=== PATIENT | male | born 1945 | race Hispanic/Latino ===

== ENCOUNTER 2022-12-01 12:34 | Inpatient (IN) | payer OTHER ==
--- OUTSIDE RECORDS SUMMARY | 2022-12-01 12:38 | XMS REPORT | Continuity of Care Document ---
:1945 Author Organization [facility] t Address [address] [place] [address] Care Team Providers Name Role Phone Adwoa Sifuentes MD Primary Care Physician Adwoa Sifuentes MD Attending Clinician Payers Payer Name Policy Type Policy Number Effective Date Expiration Date S ource Problems This patient has no known problems. Allergies, Adverse Reactions, Alerts This patient has no known allergies or adverse reactions. Social History Social Habit Start Date Stop Date Quantity Comments Source Gender identity [facility] Sexual orientation [facility] Sex Assigned At [birth year] [facility] 00:00:00 00:00:00 Smoking Status Start Date Stop Date Source Tobacco smoking consumption unknown [facility] Medications This patient has no known medications. Procedures Procedure Date / Time Performed Performing Clinician [facility] devon US VASCULAR SCREENING 2022-08-06 20:45:00 [facility] HEART SCAN PLUS CT HEART SCAN PLUS W 2022-08-06 19:32:27 [facility] PHYSICIAN ORDER Plan of Care Planned Activity Planned Date Details Comments Source Future Scheduled 2022-10-01 Hepatitis C screening [facility] Test 17:06:34 (procedure) [code = [id number]] Future Scheduled 2022-10-01 SHINGLES VACCINES (1 Met [facility] Test 17:06:34 of 2) [code = SHINGLES VACCINES (1 of 2)] Future Scheduled 2022-10-01 65+ PNEUMOCOCCAL [facility] Test 17:06:34 VACCINE (1 - PCV) [code = 65+ PNEUMOCOCCAL VACCINE (1 - PCV)] Future Scheduled 2022-10-01 COVID-19 VACCINE (4 - [facility] Test 17:06:34 Booster for Moderna series) [code = COVID-19 VACCINE (4 - Booster for Moderna series)] Future Scheduled 2022-10-01 [facility] 17:06:34 [code = INFLUENZA VACCINE] Encounters Start End Encounter Admission Attending Care Care Encounter Source Date/Time Date/Time Type Type Clinicians Facility Department ID 2022-08-06 2022-08-06 [facility], 1.2.840.1 [id number] Method[facility] 13:15:39 23:59:00 [address]counter [facility] [id number] 3.430.2.7 Hospit a .[id number] l .8 2022-08-06 2022-08-06 [facility] 1.2.840.1 [id number] Methodi 13:14:51 13:14:51 Encounter [facility] [id number] 3.430.2.7 Hospit a .[id number] l .8 2022-08-06 2022-08-06 Outpatient [facility] [id number] [place] 00:00:00 00:00:[address] [facility] [address] 2022-08-06 2022-08-06 Outpatient [facility] [id number] [address] [place] [address] 00:00:00 00:00:[address] [facility] [address] 2022-08-06 2022-08-06 Travel 1.2.840.1 [id number] Methodi 00:00:00 00:00:[id number] 3.430.2.7 0.2.7.3.698 Ho spita .[id number] 084.8 l .8 2022-07-23 2022-07-23 Transcribe [facility] 1.2.840.1 [id number] Methodi 00:00:00 00:00:00 Orders [facility] [id number] 3.430.2.7 Hospit a .[id number] l .8 Results This patient has no known results.
--- NOTE | 2022-12-01 13:34 | RAD REPORT ---
EXAM DESCRIPTION: RAD - Pelvis - 12/01/2022 1:15 pm CLINICAL HISTORY: pain sp fall COMPARISON: No comparisons TECHNIQUE: Single AP view of the pelvis. FINDINGS: The visualized pelvic ring is intact. No suspicious osseous lesions. Nnfr-dj-zrmntnyn dege nerative changes of the hip joints. Other pelvic joints are unremarkable. Visualized aspects of the a bdomen and soft tissues are unremarkable. IMPRESSION: No acute osseous abnormality of the bony pelvis. Zlok-ej-hgrmjeyw bilateral hip joint de generative changes.
--- NOTE | 2022-12-01 13:39 | RAD REPORT ---
EXAM DESCRIPTION: RAD - Hip Left 2 View - 12/01/2022 1:15 pm CLINICAL HISTORY: DEFORMITY COMPARISON: Pelvis dated 12/01/2022 TECHNIQUE: Left hip, AP and frogleg views of the left hip. FINDINGS: Buckled fracture at the base of the femoral head. Lidb-hn-olvlrmqz left hip joint degenera tive changes. No dislocation. IMPRESSION: Buckle fracture at the base of the femoral head
--- NOTE | 2022-12-01 13:43 | RAD REPORT ---
EXAM DESCRIPTION: CT - Spine Lumbar Wo Con - 12/01/2022 1:25 pm CLINICAL HISTORY: SMASH INJURY COMPARISON: No comparisons TECHNIQUE: Axial noncontrast CT imaging of the lumbar spine was performed with coronal and sagittal re-formatted images. All CT scans are performed using dose optimization technique as appropriate and may include automated exposure control or mA/KV adjustment according to patient size. FINDINGS: No acute lumbar spine fracture seen. No aggressive marrow pattern or malalignment. Paraspinal tissues are normal in thickness. No paraspinal abscess or hematoma seen. Intervertebral disc disease assessment is inherently limited by CT. Within these limitations, no high -grade canal stenosis suspected. Disc protrusions present circumferentially at L4-5 and L5-S1 contrib david to mild bilateral neural foraminal narrowing on the right at L5-S1 and bilaterally at L4-5. Mild- to-moderate facet degenerative changes most pronounced at L5-S1. 5 millimeter subpleural left lower lobe lung nodule, incompletely imaged. Status post cholecystectomy . Colonic diverticulosis. IMPRESSION: No acute osseus abnormality of the lumbar spine. Degenerative changes as above. It there is concern for impingement upon the neural structures, MRI wo uld provide improved sensitivity.
[2022-12-01 13:58] LABS: Absolute Lymphocytes (CBC) 0.6 K/uL (0.7-4.9); Hematocrit 33.3 % (39.6-49.0); Lymphocytes % 5.6 % (15.3-44.8); MCV 97.9 fL (80-100); MPV 9.1 fL (7.6-11.3)
--- NOTE | 2022-12-01 14:05 | EDPHYS ---
Physician Documentation [facility] Name: Gavin Hale Age: 77 yrs Sex: Male : 1945 Arrival Date: 12/01/2022 Time: 12:34 Bed 13 Private MD: Fabian Sifuentes V ED Physician Wes Christian HPI: 12/01 13:59 This 77 yrs old Male presents to ER via Wheelchair with complaints of Fall bs3 Injury, Hip Pain. 13:59 Patient with history of hypertension hypothyroidism presents with left hip pain status bs3 post fall he feels like his foot got stuck when he was in the kitchen and he fell landing on his left hip prior to arrival he now notes that he feels tingling at the bottom of his foot but no weakness he does have significant pain worse with movement he was able to get himself up and stand but he cannot walk denies prefall lightheadedness dizziness or anything else. Historical: - Allergies: 12:54 No Known Allergies; vg1 - PMHx: 12:54 Hypertension; Hypothyroidism; vg1 - Immunization history: Last tetanus immunization: unknown. - Social history:: Smoking status: Patient denies any tobacco usage or history of. ROS: 14:02 Constitutional: Negative for fever, chills bs3 14:02 All other systems are negative. Exam: 14:02 Constitutional: This is a well developed, well nourished patient who is awake, alert, bs3 and in no acute distress. Head/Face: Normocephalic, atraumatic. Eyes: Pupils equal round and reactive to light, extra-ocular motions intact. Lids and lashes normal. ENT: mmm, no posterior phyarngeal erythema Neck: Trachea midline, no thyromegaly, no neck stiffness Chest/axilla: Normal chest wall appearance and motion. Nontender with no deformity. No lesions are appreciated. Cardiovascular: Regular rate and rhythm with a normal S1 and S2. symmetric pulses in upper extremities Respiratory: Lungs have equal breath sounds bilaterally, clear to auscultation, no respiratory distress Abdomen/GI: Soft, non-tender, no rebound or guarding Skin: Warm, dry with normal turgor. Normal color with no rashes, no lesions, and no evidence of cellulitis. MS/ Extremity: Pulses equal, no cyanosis. Sensation is intact distally to light touch he reports a difference in sensation he has pain with axial loading of his left leg pain with logrolling of the left leg he also has L for tenderness to palpation Neuro: Awake and alert, GCS 15, oriented to person, place, time, and situation. Cranial nerves II-XII grossly intact. Motor strength 5/5 in all extremities. Sensory grossly intact. Psych: Awake, alert, with orientation to person, place and time. Behavior, mood, and affect are within normal limits. Vital Signs: 12:49 BP 156 / 84; Pulse 67; Resp 16; Temp 98.1(TE); Pulse Ox 99% on R/A; Weight 67.13 kg; vg1 Height 5 ft. 10 in. ; Pain 10/10; 14:10 Pain 10/10; nj1 15:07 BP 159 / 94; Pulse 79; Resp 18; Pulse Ox 99% on R/A; kr3 12:49 Body Mass Index 21.24 (67.13 kg, 177.8 cm) vg1 12:49 Pain Scale: Adult vg1 14:10 Pain Scale: Adult nj1 [place] Coma Score: 12:49 Eye Response: spontaneous(4). Motor Response: obeys commands(6). Verbal Response: vg1 oriented(5). Total: 15. Trauma Score (Adult): 12:49 Eye Response: spontaneous(1); Verbal Response: oriented(1); Motor Response: obeys vg1 commands(2); Systolic BP: > 89 mm Hg(4); Respiratory Rate: 10 to 29 per min(4); [place] Score: 15; Trauma Score: 12 MDM: 12:40 Patient medically screened. bs3 14:02 Data reviewed: vital signs, nurses notes. ED course: Patient status post fall with back bs3 pain and leg pain will do x-ray of the leg/hip and CT of the lumbar spine x-ray is consistent with fracture discussed with orthopedics requesting a CT and admission discussed with Dr. Sifuentes who will admit the patient. 12/01 12:50 Order name: CBC with Diff; Complete Time: 14:47 bs3 12/01 12:50 Order name: BMP; Complete Time: 14:47 bs3 12/01 13:54 Order name: Type And Screen; Complete Time: 14:47 bs3 12/01 14:11 Order name: CBC with Automated Diff EDMS 12/01 14:11 Order name: CBC with Automated Diff EDMS 12/01 14:34 Order name: PT-INR bs3 12/01 14:34 Order name: Ptt, Activated bs3 12/01 14:46 Order name: ABO/RH no charge; Complete Time: 14:47 EDMS 12/01 12:50 Order name: Hip Left 2 View XRAY; Complete Time: 13:49 bs3 12/01 12:50 Order name: Pelvis XRAY; Complete Time: 13:49 bs3 12/01 12:50 Order name: CT Lumbar Spine Wo Con; Complete Time: 13:49 bs3 12/01 13:51 Interpretation: Abnormal. bs3 12/01 13:54 Order name: CT Pelvis wo Cont; Complete Time: 14:47 bs3 12/01 14:11 Order name: CONS Physician Consult EDMS 12/01 12:50 Order name: EKG - Nurse/Tech; Complete Time: 13:17 bs3 Administered Medications: 14:10 Drug: morphine IVP or IV 2 mg Route: IVP; Infused Over: 4 mins; Site: left antecubital; nj1 15:08 Follow up: Response: No adverse reaction; RASS: Alert and Calm (0) kr3 Disposition Summary: 12/01/22 14:04 Hospitalization Ordered Hospitalization Status: Inpatient Admission bs3 Provider: Fabian Sifuentes bs3 Location: Telemetry/MedSurg (Inpatient) bs3 Condition: Stable bs3 Problem: new bs3 Symptoms: have improved bs3 Bed/Room Type: Standard bs3 Room Assignment: 229(12/01/22 14:26) eb Diagnosis - Stress fracture, hip, unspecified bs3 Forms: - Medication Reconciliation Form bs3 - SBAR form bs3 Signatures: Dispatcher [employer] EDMS Yanira Hodges Victoria RN RN vg1 Wes Christian MD MD bs3 Lacy Roblero RN RN nj1 Lita García RN kr3 Corrections: (The following items were deleted from the chart) 14:26 14:04 bs3 eb
--- NOTE | 2022-12-01 14:05 | ER ---
Nurse's Notes [facility] Name: Gavin Hale Age: 77 yrs Sex: Male : 1945 Arrival Date: 12/01/2022 Time: 12:34 Bed 13 Private MD: Fabian Sifuentes V Diagnosis: Stress fracture, hip, unspecified Presentation: 12/01 12:49 Chief complaint: Patient states: "I was walking just fine this morning and tripped in vg1 kitchen" Denies LOC and denies hitting head. States Left hip and left knee pain, lower back pain upon palpation. Care prior to arrival: None. Mechanism of Injury: Fall from standing position. Trauma event details: Injury occurred in the [facility]. 12:49 Acuity: EULOGIO 3 vg1 12:49 Method Of Arrival: Wheelchair vg1 12:53 Coronavirus screen: Vaccine status: Patient reports receiving the 2nd dose of the covid vg1 vaccine. Client denies travel out of the [place] in the last 14 days. Ebola Screen: Patient negative for fever greater than or equal to 101.5 degrees Fahrenheit, and additional compatible Ebola Virus Disease symptoms Patient denies exposure to infectious person. Patient denies travel to an Ebola-affected area in the 21 days before illness onset. Initial Sepsis Screen: Does the patient meet any 2 criteria? No. Patient's initial sepsis screen is negative. Does the patient have a suspected source of infection? No. Patient's initial sepsis screen is negative. Risk Assessment: Do you want to hurt yourself or someone else? Patient reports no desire to harm self or others. Onset of symptoms was December 01, 2022. Historical: - Allergies: 12:54 No Known Allergies; vg1 - PMHx: 12:54 Hypertension; Hypothyroidism; vg1 - Immunization history: Last tetanus immunization: unknown. - Social history:: Smoking status: Patient denies any tobacco usage or history of. Screenin:49 Abuse screen: Denies threats or abuse. Denies injuries from another. Nutritional vg1 screening: No deficits noted. Tuberculosis screening: No symptoms or risk factors identified. 15:02 [facility] ED Fall Risk Assessment (Adult) History of falling in the last 3 months, kr3 including since admission Yes- single mechanical fall (1 pt) Confusion or Disorientation No (0 pts) Intoxicated or Sedated No (0 pts) Impaired Gait No (0 pts) Mobility Assist Device Used No (0 pt) Altered Elimination No (0 pt) Score/Fall Risk Level 0 - 2 = Low Risk Oriented to surroundings, Maintained a safe environment, Educated pt \\T\\ family on fall prevention, incl call for assistance when getting out of bed, Assessed \\T\\ reinforced patient's understanding of fall precautions, Hourly rounding (assess needs \\T\\ fall precautionary measures) done. Primary Survey: 12:49 NO uncontrolled hemorrhage observed. A: The client is awake and alert. The airway is vg1 patent. Breathing/Chest: Spontaneous respiratory effort, equal unlabored respirations, breath sounds clear bilaterally, regular pattern, symmetrical chest rise and fall. Circulation: No external hemorrhage present. Regular and strong central pulse, skin warm/dry/normal color. Disability Client is alert. Exposure/Environment: All clothing and personal items were removed. Forensic evidence collection is not deemed to be indicated at this time. Items placed in patient belonging bag. There is no evidence of uncontrolled external bleeding. c/o pain in Left hip and left knee. 15:00 Reassessment Breathing: Spontaneous respiratory effort, equal unlabored respirations, kr3 breath sounds clear bilaterally, regular pattern with symmetrical chest rise and fall. Circulation: No external hemorrhage noted. Regular and strong central pulse, skin warm/dry/normal color. Disability: Alert. Secondary Survey: 12:49 HEENT: No deficits noted. Gastrointestinal: No deficits noted. : No deficits noted. vg1 Musculoskeletal: Reports pain in left knee and left hip. Assessment: 12:49 General: Appears in no apparent distress. uncomfortable, Behavior is calm, cooperative. vg1 Pain: Complains of pain in Left hip and left knee Pain currently is 10 out of 10 on a pain scale. Musculoskeletal: Range of motion: limited in left hip and left knee. 13:00 Reassessment: XRAY at bedside. vg1 Vital Signs: 12:49 BP 156 / 84; Pulse 67; Resp 16; Temp 98.1(TE); Pulse Ox 99% on R/A; Weight 67.13 kg; vg1 Height 5 ft. 10 in. ; Pain 10/10; 14:10 Pain 10/10; nj1 15:07 BP 159 / 94; Pulse 79; Resp 18; Pulse Ox 99% on R/A; kr3 12:49 Body Mass Index 21.24 (67.13 kg, 177.8 cm) vg1 12:49 Pain Scale: Adult vg1 14:10 Pain Scale: Adult nj1 [place] Coma Score: 12:49 Eye Response: spontaneous(4). Motor Response: obeys commands(6). Verbal Response: vg1 oriented(5). Total: 15. Trauma Score (Adult): 12:49 Eye Response: spontaneous(1); Verbal Response: oriented(1); Motor Response: obeys vg1 commands(2); Systolic BP: > 89 mm Hg(4); Respiratory Rate: 10 to 29 per min(4); Sandra Score: 15; Trauma Score: 12 ED Course: 12:36 Patient arrived in ED. rg4 12:36 Fabian Sifuentes MD is Private Physician. rg4 12:40 Wes Christian MD is Attending Physician. bs3 12:49 Patient maintains SpO2 saturation greater than 95% on room air. vg1 12:51 Triage completed. vg1 12:53 Arm band placed on. vg1 13:00 Bed in low position. Call light in reach. Side rails up X 1. kr3 13:01 Lita García, [place] is Primary Nurse. kr3 13:17 Hip Left 2 View XRAY In Process Unspecified. EDMS 13:17 Pelvis XRAY In Process Unspecified. EDMS 13:27 CT Lumbar Spine Wo Con In Process Unspecified. EDMS 13:53 Inserted saline lock: 20 gauge in left antecubital area, using aseptic technique. Blood ah1 collected. 13:53 BMP Sent. ah1 13:53 CBC with Diff Sent. ah1 14:03 Fabian Sifuentes MD is Hospitalizing Provider. bs3 14:20 CT Pelvis wo Cont In Process Unspecified. EDMS 15:00 Patient admitted, IV remains in place. kr3 15:00 No provider procedures requiring assistance completed. kr3 15:03 Thermoregulation: warm blanket given to patient. kr3 15:08 Ptt, Activated Sent. kr3 15:09 PT-INR Sent. kr3 Administered Medications: 14:10 Drug: morphine IVP or IV 2 mg Route: IVP; Infused Over: 4 mins; Site: left antecubital; nj1 15:08 Follow up: Response: No adverse reaction; RASS: Alert and Calm (0) kr3 Medication: 15:03 VIS not applicable for this client. kr3 Intake: 15:02 PO: 0ml; Total: 0ml. kr3 Outcome: 14:04 Decision to Hospitalize by Provider. bs3 15:00 Admitted to Med/surg accompanied by tech, via stretcher, room 229, Report called to kr3 Miri Palacios Rn 15:01 Condition: stable kr3 15:01 Instructed on the need for admit. 15:02 Patient's length of stay was not longer than 2 hours. patient hospitalized Patient's kr3 length of stay extended due to 15:09 Patient left the ED. kr3 Signatures: Dispatcher [employer] EDMelany Velásquez rg4 Kimberli Albert, RN RN vg1 Lita García RN RN kr3 Wes Christian MD MD bs3 Lacy Roblero RN RN nj1 Óscar Castellon [facility]
[2022-12-01] MEDS ORDERED: MORPHINE 2 MG/ML SYR ONE (14:16)
--- NOTE | 2022-12-01 14:44 | RAD REPORT ---
EXAM DESCRIPTION: CT - Pelvis Wo Cont - 12/01/2022 2:19 pm CLINICAL HISTORY: eval left hip fracture COMPARISON: No comparisons TECHNIQUE: Thin cut axial CT imaging of the pelvis was performed without IV contrast. Multiplanar re formats were generated and reviewed. All CT scans are performed using dose optimization technique as appropriate and may include automated exposure control or mA/KV adjustment according to patient size. FINDINGS: Impacted and slightly volar apex angulated left basicervical femoral neck fracture. The visualized pelvic ring is otherwise intact. The right femoral head/neck are intact. No other suspicious osseous lesions. Mild colonic diverticulosis. Small right inguinal hernia containing fat. IMPRESSION: Inspected and angulated left femoral basicervical fracture as above.
[2022-12-01] MEDS ORDERED: NA CHLORIDE 0.9% 1,000 ML IV SCH (15:00)
[2022-12-01 15:26] VITALS: BMI 21.4
[2022-12-01 16:40] LABS: Protime INR 0.98
[2022-12-01] MEDS ORDERED: DIPHENHYDRAMINE 25 MG TAB/CAP PO PRN (21:10)
[2022-12-01] MEDS ORDERED: cloNIDine HCL 0.1 MG TAB PO PRN (21:11)
[2022-12-01] MEDS: NA CHLORIDE 0.9% 1,000 ML IV SCH (22:00)
[2022-12-01] MEDS: MORPHINE 2 MG/ML SYR IV PRN (22:58)
[2022-12-02] MEDS: MORPHINE 2 MG/ML SYR IV PRN ×2 (03:13→09:06)
[2022-12-02 03:42] LABS: Absolute Lymphocytes (CBC) 0.7 K/uL (0.7-4.9); Hematocrit 29.3 % (39.6-49.0); Lymphocytes % 13.9 % (15.3-44.8); MCV 96.5 fL (80-100); MPV 9.3 fL (7.6-11.3); RBC Red Blood Cell Count 3.04 M/uL (4.33-5.43)
[2022-12-02] MEDS: NA CHLORIDE 0.9% 1,000 ML IV SCH ×2 (05:29→18:00)
[2022-12-02] MEDS: ATORVASTATIN 10 MG TAB PO SCH (08:41)
--- NOTE | 2022-12-02 10:16 | EKG ---
Test Date: 2022-12-01 Test Time: 13:14:58 Training Consultant: MITCHELL MEASUREMENT RESULTS: Intervals: Rate: 74 WA: 150 QRSD: 90 QT: 402 QTc: 446 House: P: 75 WA: 150 QRS: 82 T: 77 INTERPRETIVE STATEMENTS: Normal sinus rhythm Nonspecific T wave abnormality Abnormal ECG Compared to ECG 02/15/2016 15:50:45 T-wave abnormality now present Sinus bradycardia no longer present Electronically Signed On 12-02-22 10:13:42 CDT by Miguel A Sands
[2022-12-02] MEDS ORDERED: Ringers Lactate 1,000 ML IV ONE (10:58)
[2022-12-02] MEDS ORDERED: TRANEXAMIC ACID 1,000 MG/10 ML VIAL IV ONE ×2 (11:06→11:09)
[2022-12-02] MEDS ORDERED: CEFAZOLIN SODIUM 2 GM/VIAL ONE (11:09)
[2022-12-02] MEDS ORDERED: HYDROMORPHONE HCL 1 MG/ML INJ ONE (11:19)
[2022-12-02] MEDS ORDERED: propofoL 200 MG/20 ML VIAL IV ONE (11:20)
[2022-12-02] MEDS ORDERED: ROCURONIUM 50 MG/5 ML VIAL IV ONE ×2 (11:21→11:23)
[2022-12-02] MEDS ORDERED: LIDOCAINE 2% MPF 5 ML VIAL ONE (11:21)
[2022-12-02] MEDS ORDERED: FENTANYL CITR 100 MCG/2 ML ONE (11:21)
[2022-12-02] MEDS ORDERED: dexAMETHasone 10 MG/ML VIAL ONE (11:21)
[2022-12-02] MEDS ORDERED: MIDAZOLAM HCL 2 MG/2 ML INJ ONE (11:22)
[2022-12-02] MEDS ORDERED: NA CHLORIDE 0.9% 1,000 ML ONE (11:24)
[2022-12-02] MEDS ORDERED: SUGAMMADEX SODIUM 200 MG/2 ML VIAL IV ONE (11:31)
[2022-12-02] MEDS ORDERED: ONDANSETRON 4 MG/2 ML VIAL ONE (12:09)
[2022-12-02] MEDS ORDERED: EPHEDRINE SULF 50 MG/ML VIAL ONE (12:16)
--- NOTE | 2022-12-02 13:12 | P.HP ---
Certification for Inpatient Patient admitted to: Inpatient With expected LOS: >2 Midnights Practitioner: I am a practitioner with admitting privileges, knowledge of patient current condition, hospital course, and medical plan of care. Services: Services provided to patient in accordance with Admission requirements found in Title 42 Section 412.3 of the Code of Federal Regulations Patient History Date of Service: 12/02/22 Reason for admission: FELL AT HOME TRIPPED AND BROKE L HIP. History of Present Illness: TOAN IS A PATIENT WITH CIRRHOSIS WITHOUT ASCITES. HE FELL AND BROKE L HIP. HE HAS NO CORONARY ISSUES. Allergies No Known Allergies Allergy (Verified 02/15/16 15:15) Home medications list reviewed: Yes Home Medications: Aspirin [Aspirin EC 81 MG] 81 mg PO DAILY 02/15/16 B12/Iodin/Mag/Zinc/Heidy/[id number] [Adrenoid Capsule] 1 cap PO DAILY 02/15/16 Diphenhydramine HCl [Benadryl Allergy] 25 mg PO DAILY PRN 02/15/16 Levomefolate/B6/B12/Algal Oil [Metanx Capsule] 1 each PO DAILY 02/15/16 Metoprolol Succinate [Toprol Xl*] 12.5 mg PO BEDTIME 02/15/16 Vit D3/Folic Acid/B2/B6/B12 [Folgard Tablet] 1 tab PO DAILY 02/15/16 Codeine/APAP [Tylenol W/Codeine #3 tab] 1 tab PO BEDTIME 12/01/22 Gabapentin 2 cap PO BEDTIME 12/01/22 Pravastatin Sodium 40 mg PO DAILY 12/01/22 - Past Medical/Surgical History Has patient received pneumonia vaccine in the past: Yes Diabetic: No -: HTN -: HYPOTHYROIDISM - Social History Smoking Status: Former smoker Alcohol use: No CD- Drugs: No Caffeine use: Yes Place of Residence: Home Review of Systems 10-point ROS is otherwise unremarkable Physical Examination - Vital Signs Temperature: 97.9 F Blood Pressure: 149/73 Pulse: 74 Respirations: 16 Pulse Ox (%): 96 - Physical Exam General: Acute distress HEENT: Atraumatic, PERRLA, Mucous membr. moist/pink, EOMI, Sclerae nonicteric Neck: Supple, 2+ carotid pulse no bruit, No LAD, Without JVD or thyroid abnormality Respiratory: Clear to auscultation bilaterally, Normal air movement Cardiovascular: Regular rate/rhythm, Normal S1 S2 Gastrointestinal: Normal bowel sounds, No tenderness Musculoskeletal: No tenderness Integumentary: No rashes Neurological: Normal gait, Normal speech, Normal strength at 5/5 x4 extr, Normal tone, Normal affect Lymphatics: No axilla or inguinal lymphadenopathy - Studies Laboratory Data (last 24 hrs) 12/01/22 13:49: Sodium 127 L, Potassium 4.0, BUN 22 H, Creatinine 1.55 H, Glucose 102 12/01/22 13:49: WBC 9.90, Hgb 11.5 L, Hct 33.3 L, Plt Count 144 L Assessment and Plan - Problems (Diagnosis) (1) Hip fracture Current Visit: Yes Status: Acute Plan: SURGERY BY DR MARQUEZ HE IS MEDICALLY CLEARED WITH MILD RISK PAIN CONTROL [place] PT REFERRAL. - Advance Directives Does patient have a Living Will: No Does patient have a Durable POA for Healthcare: No
--- NOTE | 2022-12-02 13:22 | P.BOP ---
Preoperative diagnosis: left hip fracture Postoperative diagnosis: same Primary procedure: left hip hemiarthroplasty Supervisor Contingents: NONE,NONE Estimated blood loss: 200 cc Specimen: left femoral head Findings: see dictation Anesthesia: General Complications: None Implants: 13 mm Biomet RPP stem, 51 mm shell, 28 x -6 head Fluids & blood products: per anesthesia record Transferred to: Recovery Room Condition: Good
[2022-12-02] MEDS ORDERED: TRAMADOL HCL 50 MG TAB PO PRN (13:41)
[2022-12-02] MEDS ORDERED: DOCUSATE NA 100 MG CAP PO PRN (13:41)
[2022-12-02] MEDS ORDERED: ONDANSETRON 4 MG/2 ML VIAL IV PRN (13:41)
--- NOTE | 2022-12-02 14:53 | RAD REPORT ---
EXAM DESCRIPTION: RAD - Hip Left 2 View - 12/02/2022 2:43 pm CLINICAL HISTORY: postop COMPARISON: Hip Left 2 View dated 12/01/2022 FINDINGS: Left total hip arthroplasty. Hardware is in expected position and alignment. Lateral skin lawanda. No unexpected postoperative finding.
[2022-12-02] MEDS: CEFAZOLIN 1 GM in NA CHLORIDE 0.9% 50 ML IVPB SCH (17:26)
--- NOTE | 2022-12-02 20:13 | OP ---
Date of Procedure: 12/02/2022 Surgeon: Bryson Mayo MD Preoperative Diagnosis: Left femoral neck fracture. Postoperative Diagnosis: Left femoral neck fracture. Procedure Performed: Left hip hemiarthroplasty. Anesthesia: General endotracheal. Fluids: Per Anesthesia record. Estimated Blood Loss: 200 cc. Complications: None. Implants: 1.A 13 mm Biomet RPP stem. 2.A 51 mm acetabular shell. 3.A 28 x -6 mm cobalt chrome head. 4.Left femoral head. Indications: Gavin is a 77-year-old male who presented to the emergency room after sustaining a fal l onto his left side with subsequent pain and inability to bear weight. The patient was found to hav e a left displaced femoral neck fracture. I discussed with the patient and his family at length, ris ks and benefits associated with operative and nonoperative treatment. He expressed understanding and elected to proceed with operative treatment. Description Of Procedure: After informed consent was obtained, the patient was identified in the pre operative holding area. The left lower extremity was marked. The patient was then brought back to [facility] operating room, transferred to the operating table in supine fashion, and placed under general end otracheal anesthesia. He was then placed in the right lateral decubitus position with his axillary r oll placed and his extremities well padded. The left lower extremity was then prepped and draped in usual sterile fashion. A time-out was initiated. The correct patient and procedure were confirmed a nd identified. The patient did receive his preoperative prophylactic antibiotics. Approximately a 1 5 cm curvilinear incision was placed centered over the greater trochanter. Dissection was then taken down to the tensor fascia ty and was then split and divided in line with the incision. Charnley r etractors were placed. The short external rotators were identified and tagged with a #5 Ethibond. T hey were elevated off the greater trochanter, and a T-shaped capsulotomy was performed. Hematoma was evacuated. The capsule was then marked with #5 Ethibond. The femoral head was then removed using [facility] corkscrew and a size 51 mm head was measured and was trialed. There was good overall fit within [facility] acetabulum. Next, attention was taken to the proximal femur where the cookie cutter was placed fo llowed by canal finder and lateralizer. The proximal femur was then reamed using a size 7 mm reamer to a size 13 mm with good overall fit, followed by broaching from a size 7 mm broach to 13 mm broach with good overall fit. It was then trialed and a -6 mm head and neck were then selected with a 51 mm shell. There was good overall leg length and stability noted. Trial implants were then removed. T he proximal femur as well as the acetabulum was irrigated thoroughly with a pulse lavage. The final implants were placed with 13 mm press-fit stem with a 28 x -6 mm head and a 51 mm shell. The hip was reduced. There was good overall stability and leg length with no significant discrepancy. The woun d was then irrigated thoroughly with normal saline. The capsule was approximated using #5 Ethibond. The external rotators were tied back to the greater trochanter using a suture passer and tied over b one bridge. The tensor fascia ty was approximated using 0 Vicryl, subcutaneous tissue was approxim ated using a 2-0 Vicryl, and skin was approximated using a stapler. Sterile dressings were applied. The patient was placed in the abduction pillow, awakened and transferred to PACU in stable condition . Postoperative Plan: The patient will be weightbearing as tolerated. Physical Therapy will be consul xavi to aid with mobilization. Postprocedure precautions will be started. He will follow up in clini c in 2 weeks for staple removal. RACHEL/DERICK Voice ID: [id number] Report ID: [id number]
[2022-12-02] MEDS: GABAPENTIN 100 MG CAP PO SCH (20:45)
[2022-12-02] MEDS: METOPROLOL XL 25 MG TAB PO SCH (20:45)
[2022-12-03] MEDS: CEFAZOLIN 1 GM in NA CHLORIDE 0.9% 50 ML IVPB SCH ×2 (00:13→05:40)
[2022-12-03] MEDS: NA CHLORIDE 0.9% 1,000 ML IV SCH ×3 (00:20→16:51)
[2022-12-03 03:59] LABS: Absolute Lymphocytes (CBC) 0.3 K/uL (0.7-4.9); Lymphocytes % 4.2 % (15.3-44.8); MCV 97.6 fL (80-100); MPV 9.4 fL (7.6-11.3); RBC Red Blood Cell Count 2.77 M/uL (4.33-5.43)
[2022-12-03 04:18] LABS: Potassium 5.2 mEq/L (3.5-5.1)
[2022-12-03 05:22] LABS: Blood Morphology Comment NOT SEEN (NOT SEEN); Platelet Estimate ADEQ
[2022-12-03] MEDS: ATORVASTATIN 10 MG TAB PO SCH (08:10)
[2022-12-03] MEDS: ENOXAPARIN 40 MG/0.4 ML SQ SCH (08:10)
--- NOTE | 2022-12-03 16:04 | P.PN ---
Subjective Date of Service: 12/03/22 Chief Complaint: s/p left hip elis Subjective: Working w/ PT pain controlled Physical Examination - Vital Signs Temperature: 99.3 F Blood Pressure: 142/75 Pulse: 64 Respirations: 16 Pulse Ox (%): 95 - Physical Exam General: Alert, In no apparent distress Musculoskeletal: Other (LLE: dressing c/d/i; +EHL/FHL/GSC/TA; sensation grossly intact distally) Assessment And Plan - Plan Gavin is a 77-year-old male status post left hip hemiarthroplasty POD#1 -Acute expected postoperative blood loss anemia; continue to monitor -Lovenox for DVT prophylaxis -Continue PT to mobilize; weightbearing as tolerated left lower extremity with posterior hip precautions -Await inpatient rehabilitation eval
[2022-12-03] MEDS: METOPROLOL XL 25 MG TAB PO SCH (21:12)
[2022-12-03] MEDS: GABAPENTIN 100 MG CAP PO SCH (21:12)
--- NOTE | 2022-12-03 21:50 | P.PN ---
Subjective Date of Service: 12/03/22 Chief Complaint: s/p left hip elis Subjective: Improving HE IS STABLE POST OP WILL GO TO REHAB IF ACCEPTED. Physical Examination - Vital Signs Temperature: 99.3 F Blood Pressure: 154/73 Pulse: 67 Respirations: 16 Pulse Ox (%): 95 - Physical Exam General: Oriented x3, Mild distress HEENT: Atraumatic, PERRLA, EOMI Neck: Supple, JVD not distended Respiratory: Clear to auscultation bilaterally, Normal air movement Cardiovascular: Regular rate/rhythm, Normal S1 S2 Gastrointestinal: Normal bowel sounds, No tenderness Musculoskeletal: No tenderness Integumentary: No rashes Neurological: Normal speech, Normal tone, Normal affect Lymphatics: No axilla or inguinal lymphadenopathy - Studies Medications List Reviewed: Yes Assessment And Plan - Current Problems (Diagnosis) (1) Hip fracture Current Visit: Yes Status: Acute Plan: SURGERY BY DR MARQUEZ HE IS MEDICALLY CLEARED WITH MILD RISK PAIN CONTROL LOVENOX SC PT REFERRAL. CONTINUE OT AND PT.
[2022-12-03] MEDS: HYDROCODONE/APAP 7.5/325 MG TAB PO PRN (22:56)
[2022-12-04] MEDS: HYDROCODONE/APAP 7.5/325 MG TAB PO PRN ×2 (03:14→09:51)
[2022-12-04 04:08] LABS: Hematocrit 23.6 % (39.6-49.0); Lymphocytes % 14.7 % (15.3-44.8); MPV 9.5 fL (7.6-11.3); RBC Red Blood Cell Count 2.41 M/uL (4.33-5.43)
[2022-12-04 04:21] LABS: Potassium 4.6 mEq/L (3.5-5.1)
[2022-12-04] MEDS: NA CHLORIDE 0.9% 1,000 ML IV SCH ×3 (06:33→20:36)
[2022-12-04] MEDS: ATORVASTATIN 10 MG TAB PO SCH (09:50)
[2022-12-04] MEDS: ENOXAPARIN 40 MG/0.4 ML SQ SCH (09:53)
--- NOTE | 2022-12-04 13:12 | P.PN ---
Subjective Date of Service: 12/04/22 Chief Complaint: s/p left hip elis Subjective: Improving HE IS STABLE POST OP WILL GO TO REHAB IF ACCEPTED. NO PAIN, NO FEVER. Review of Systems 10-point ROS is otherwise unremarkable Physical Examination - Vital Signs Temperature: 97.4 F Blood Pressure: 133/72 Pulse: 54 Respirations: 16 Pulse Ox (%): 97 - Physical Exam General: Alert, In no apparent distress HEENT: Atraumatic, PERRLA, EOMI Neck: Supple, JVD not distended Respiratory: Clear to auscultation bilaterally, Normal air movement Cardiovascular: Regular rate/rhythm, Normal S1 S2 Gastrointestinal: Normal bowel sounds, No tenderness Musculoskeletal: No tenderness Integumentary: No rashes Neurological: Normal speech, Normal tone, Normal affect Lymphatics: No axilla or inguinal lymphadenopathy - Studies Medications List Reviewed: Yes Assessment And Plan - Current Problems (Diagnosis) (1) Hip fracture Current Visit: Yes Status: Acute Plan: SURGERY BY DR MARQUEZ HE IS MEDICALLY CLEARED WITH MILD RISK PAIN CONTROL LOVENOX SC PT REFERRAL. CONTINUE OT AND PT. ANEMIA DAILY LAB. MAY NEED BLOOD. HE IS ON LOVENOX. MAY HAVE TO STOP IT. WILL LET DR. DASILVA KNOW.
[2022-12-04] MEDS: METOPROLOL XL 25 MG TAB PO SCH (20:37)
[2022-12-04] MEDS: GABAPENTIN 100 MG CAP PO SCH (20:37)
[2022-12-05] MEDS: ATORVASTATIN 10 MG TAB PO SCH (08:57)
[2022-12-05] MEDS: ENOXAPARIN 40 MG/0.4 ML SQ SCH (09:00)
--- NOTE | 2022-12-05 09:32 | CON ---
Date of Consultation: 12/02/2022 Reason For Consultation: Left hip pain. History Of Present Illness: Gavin is a 77-year-old male who presented to the ER, sustaining a fall onto his left side with subsequent pain and inability to bear weight. He had x-rays in the emergency room, which demonstrated a left femoral neck fracture, which was displaced. Patient normally walks without the use of assistive devices. He denies any other musculoskeletal complaints at this time. Review of Systems: As above, otherwise negative. Past Medical History: Includes hypertension, hypothyroidism. Allergies: NO KNOWN DRUG ALLERGIES. Home Medications: Aspirin, Benadryl, Toprol, Folgard, Tylenol, gabapentin, pravastatin. Social History: Denies reports passing the tobacco use. No alcohol use. Lives at home. Physical Examination: General: No apparent distress. HEENT: Normocephalic and atraumatic. Neck: Supple. Cardiovascular: Brisk cap refill to all digits. Chest: Nonlabored breathing. Abdomen: Nondistended. Psychiatric: Responsive to exam. Musculoskeletal: Bilateral upper extremities functional range of motion without pain. No gross deformities. No dislocations. Right lower extremity: Functional range of motion without pain. No gross deformities. No obvious dislocations. Left lower extremity: Pain with range of motion of the left hip. Tenderness to palpation over the left hip. No tenderness over the knee, tibia, or ankle. Neurovascularly intact distally. Diagnostic Studies: X-rays and CAT scan demonstrate a displaced left femoral neck fracture. Assessment And Plan: Mr. Hale is a 77-year-old male with a left displaced femoral neck fracture. I discussed with the patient and his family at length his diagnosis as well as treatment plan. Given the displaced unstable fracture pattern, we will proceed with left hip hemiarthroplasty. Risks and benefits associated with the procedure were discussed with the patient and family at length and they expressed understanding to proceed with left hip hemiarthroplasty later today if cleared medically. CV/MODL Voice ID: [id number] Report ID: [id number] FAVIO
[2022-12-05 09:59] LABS: Absolute Lymphocytes (CBC) 0.7 K/uL (0.7-4.9); Hematocrit 26.1 % (39.6-49.0); Lymphocytes % 11.9 % (15.3-44.8); MCV 97.4 fL (80-100); MPV 8.7 fL (7.6-11.3); RBC Red Blood Cell Count 2.68 M/uL (4.33-5.43)
--- NOTE | 2022-12-05 11:41 | P.PN ---
Subjective Date of Service: 12/04/22 Chief Complaint: s/p left hip elis Subjective: Improving, Working w/ PT pain controlled Physical Examination - Vital Signs Temperature: 98.3 F Blood Pressure: 160/86 Pulse: 69 Respirations: 14 Pulse Ox (%): 97 - Physical Exam General: Alert, In no apparent distress Musculoskeletal: Other (Examination of the left lower extremity demonstrates a dressing which has mild sanguinous drainage; neurovascular intact distally) - Studies Medications List Reviewed: Yes Assessment And Plan - Plan Gavin is a 77-year-old male status post left hip hemiarthroplasty POD#2 -Acute expected postoperative blood loss anemia; continue to monitor -Lovenox for DVT prophylaxis -Continue PT to mobilize; weightbearing as tolerated left lower extremity with posterior hip precautions -Await inpatient rehabilitation eval
--- NOTE | 2022-12-05 12:59 | P.PN ---
Subjective Date of Service: 12/05/22 Chief Complaint: s/p left hip elis Subjective: Ambulating, Improving, Working w/ PT pain controlled Physical Examination - Vital Signs Temperature: 98.3 F Blood Pressure: 160/86 Pulse: 69 Respirations: 14 Pulse Ox (%): 97 - Physical Exam General: Alert, In no apparent distress Musculoskeletal: Other (dressing clean and dry with minimal sanguinous drainage; +EHL/FHL/GSC/TA; sensation grossly intact distally) - Studies Medications List Reviewed: Yes Assessment And Plan - Plan Gavin is a 77-year-old male status post left hip hemiarthroplasty POD#3 -Acute expected postoperative blood loss anemia; h/h stabilized -Lovenox for DVT prophylaxis -Continue PT to mobilize; weightbearing as tolerated left lower extremity with posterior hip precautions -Await inpatient rehabilitation eval
[2022-12-05] MEDS: HYDROCODONE/APAP 7.5/325 MG TAB PO PRN (21:09)
[2022-12-05] MEDS: GABAPENTIN 100 MG CAP PO SCH (21:10)
[2022-12-05] MEDS: METOPROLOL XL 25 MG TAB PO SCH (21:10)
--- NOTE | 2022-12-05 21:17 | P.PN ---
Subjective Date of Service: 12/05/22 Chief Complaint: s/p left hip elis Subjective: Improving HE IS STABLE POST OP WILL GO TO REHAB IF ACCEPTED. NO PAIN, NO FEVER. HE IS STABLE WE ARE WAITING FOR INSURANCE APPROVAL FOR REHAB. Physical Examination - Vital Signs Temperature: 97.9 F Blood Pressure: 160/80 Pulse: 63 Respirations: 16 Pulse Ox (%): 100 - Physical Exam General: Oriented x3, Mild distress HEENT: Atraumatic, PERRLA, EOMI Neck: Supple, JVD not distended Respiratory: Clear to auscultation bilaterally, Normal air movement Cardiovascular: Regular rate/rhythm, Normal S1 S2 Gastrointestinal: Normal bowel sounds, No tenderness Musculoskeletal: No tenderness Integumentary: No rashes Neurological: Normal speech, Normal tone, Normal affect Lymphatics: No axilla or inguinal lymphadenopathy - Studies Medications List Reviewed: Yes Assessment And Plan - Current Problems (Diagnosis) (1) Hip fracture Current Visit: Yes Status: Acute Plan: SURGERY BY DR MARQUEZ HE IS MEDICALLY CLEARED WITH MILD RISK PAIN CONTROL LOVENOX SC PT REFERRAL. CONTINUE OT AND PT. ANEMIA DAILY LAB. MAY NEED BLOOD. HE IS ON LOVENOX. MAY HAVE TO STOP IT. WILL LET DR. DASILVA KNOW. STABLE NO NEW CHANGES.
[2022-12-06] MEDS: ATORVASTATIN 10 MG TAB PO SCH (09:10)
[2022-12-06] MEDS: ENOXAPARIN 40 MG/0.4 ML SQ SCH (09:10)
[2022-12-06 13:10] VITALS: O2SAT 98
--- NOTE | 2022-12-06 16:31 | P.DS ---
Admission Date: 12/01/22 Discharge Date: 12/06/22 Disposition: TRANSFER TO INPATIENT REHAB Discharge Condition: FAIR Reason for Admission: s/p left hip elis - Problems (1) Hip fracture Current Visit: Yes Status: Acute Brief History of Present Illness: TOAN IS A PATIENT WITH CIRRHOSIS WITHOUT ASCITES. HE FELL AND BROKE L HIP. HE HAS NO CORONARY ISSUES. Hospital Course: TOAN HAS CIRRHOSIS, HE FELL AND BROKE L HIP. HE HAD SURGERY. WE HAD TO CALL [employer] TO GET APPROVAL FOR REHAB. INITIALLY THEY REFUSED BUT LATER ONCE I EXPLAINED TO DOCTOR THAT WE ARE WASTING LOT OF DAYS ON REGULAR FLOOR JUST TO GET A "NO" ANSWER FROM THEM. SHE UNDERSTOOD AND SHE GAVE US 5 DAYS ON REHAB HE STILL WALKS ONLY 80 FEET. Vital Signs/Physical Exam: Temp Pulse Resp BP Pulse Ox 97.9 F 69 14 139/77 97 12/06/22 08:00 12/06/22 08:00 12/06/22 08:00 12/06/22 08:00 12/06/22 08:00 Laboratory Data at Discharge: WBC 5.70 thou/uL (4.3-10.9) 12/05/22 09:49 Hgb 9.0 g/dL (13.6-17.9) L 12/05/22 09:49 Hct 26.1 % (39.6-49.0) L 12/05/22 09:49 Plt Count 132 thou/uL (152-406) L 12/05/22 09:49 PT 10.8 SECONDS (9.5-12.5) 12/01/22 16:26 INR 0.98 12/01/22 16:26 APTT 27.7 SECONDS (24.3-36.9) 12/01/22 16:26 Sodium 132 mEq/L (136-145) L 12/04/22 03:04 Potassium 4.6 mEq/L (3.5-5.1) 12/04/22 03:04 BUN 17 mg/dL (7-18) 12/04/22 03:04 Creatinine 1.26 mg/dL (0.70-1.30) 12/04/22 03:04 Glucose 91 mg/dL (74-106) 12/04/22 03:04 Home Medications: Aspirin [Aspirin EC 81 MG] 81 mg PO DAILY 02/15/16 B12/Iodin/Mag/Zinc/Heidy/[id number] [Adrenoid Capsule] 1 cap PO DAILY 02/15/16 Diphenhydramine HCl [Benadryl Allergy] 25 mg PO DAILY PRN 02/15/16 Levomefolate/B6/B12/Algal Oil [Metanx Capsule] 1 each PO DAILY 02/15/16 Metoprolol Succinate [Toprol Xl*] 12.5 mg PO BEDTIME 02/15/16 Vit D3/Folic Acid/B2/B6/B12 [Folgard Tablet] 1 tab PO DAILY 02/15/16 Gabapentin 2 cap PO BEDTIME 12/01/22 Pravastatin Sodium 40 mg PO DAILY 12/01/22 traMADol HCL [Ultram*] 50 mg PO Q6H PRN tab 12/06/22 Physician Discharge Instructions: Keep dressing clean, dry and intact. May be WBAT LLE with posterior hip precautions. D/c lawanda on 12/17/2022 to left hip. Followup with Dr. Mayo week of 12/23/2022 for reevaluation. Activity: Weight bearing as tolerated Followup: Fabian Sifuentes MD [Primary Care Provider] - Bryson Mayo MD [ACTIVE - CAN ADMIT] - 1-2 Weeks
[2022-12-06 17:34] VITALS: BP 158/86; TEMP 97.8
== END 2022-12-06 17:55 | DRG 522 ==
LOC: ER 12:34 → ERHOLD 14:06 → 2ND 15:00
PROVIDERS: ADMIT Internal Medicine; ATTEND Internal Medicine
PROC: 0SRS01Z Replacement of Left Hip Joint, Femoral Surface with Metal Synthetic Substitute, Open Approach (ICD-10-PCS; principal; 2022-12-02 11:30)
DX: S72.002A Fracture of unspecified part of neck of left femur, initial encounter for closed fracture (principal); I10 Essential (primary) hypertension; E03.9 Hypothyroidism, unspecified; K74.60 Unspecified cirrhosis of liver; Z79.82 Long term (current) use of aspirin; Z79.899 Other long term (current) drug therapy; Z87.891 Personal history of nicotine dependence; W18.39XA Other fall on same level, initial encounter; Y93.9 Activity, unspecified; Y92.010 Kitchen of single-family (private) house as the place of occurrence of the external cause
CPT/HCPCS: 36415; 72131; 72170; 72192; 80048; 85014; 85018; 85025; 85610; 85730; 86850; 86900; 86901; 88305; 88311; 93005; 94010; 94760; 96374; 97110; 97116; 97161; 97165; 97530; 97535; 99285; J0690; J1100; J1170; J1650; J2001; J2250; J2270; J2405; J2704; J3010; J7030; J7120

== ENCOUNTER 2022-12-06 15:49 | Inpatient (IN) | payer OTHER ==
--- OUTSIDE RECORDS SUMMARY | 2022-12-06 18:17 | XMS REPORT | Continuity of Care Document ---
:1945 Author Organization [facility] t Address [address] [facility] [address] [place] [id number] Care Team Providers Name Role Phone Maria CHAVARRIA, Fabian Primary Care Physician Fabian Sifuentes MD Attending Clinician Payers Payer Name Policy Type Policy Number Effective Date Expiration Date S ource Problems This patient has no known problems. Allergies, Adverse Reactions, Alerts This patient has no known allergies or adverse reactions. Social History Social Habit Start Date Stop Date Quantity Comments Source Gender identity [facility] Sexual orientation [facility] Sex Assigned At [birth year] [facility] 00:00:00 00:00:00 Smoking Status Start Date Stop Date Source Tobacco smoking consumption unknown [facility] Medications This patient has no known medications. Procedures Procedure Date / Time Performed Performing Clinician Ray devon US VASCULAR SCREENING 2022-08-06 20:45:00 [facility] HEART SCAN PLUS CT HEART SCAN PLUS W 2022-08-06 19:32:27 [facility] PHYSICIAN ORDER Plan of Care Planned Activity Planned Date Details Comments Source Future Scheduled 2022-10-01 Hepatitis C screening [facility] Test 17:06:34 (procedure) [code = [id number]] Future Scheduled 2022-10-01 SHINGLES VACCINES (1 Met [facility] Test 17:06:34 of 2) [code = SHINGLES VACCINES (1 of 2)] Future Scheduled 2022-10-01 65+ PNEUMOCOCCAL [facility] Test 17:06:34 VACCINE (1 - PCV) [code = 65+ PNEUMOCOCCAL VACCINE (1 - PCV)] Future Scheduled 2022-10-01 COVID-19 VACCINE (4 - [facility] Test 17:06:34 Booster for Moderna series) [code = COVID-19 VACCINE (4 - Booster for Moderna series)] Future Scheduled 2022-10-01 INFLUENZA VACCINE [facility] Test 17:06:34 [code = INFLUENZA VACCINE] Future Scheduled 2022-10-01 Hepatitis C screening [facility] Test 17:06:34 (procedure) [code = [id number]] Future Scheduled 2022-10-01 SHINGLES VACCINES (1 Met [facility] Test 17:06:34 of 2) [code = SHINGLES VACCINES (1 of 2)] Future Scheduled 2022-10-01 65+ [facility]OC[facility]CCAL [facility] Test 17:06:34 VACCINE (1 - PCV) [code = 65+ PNEUMOCOCCAL VACCINE (1 - PCV)] Future Scheduled 2022-10-01 COVID-19 VACCINE (4 - [facility] Test 17:06:34 Booster for Moderna series) [code = COVID-19 VACCINE (4 - Booster for Moderna series)] Future Scheduled 2022-10-01 INFLUENZA VACCINE [facility] Test 17:06:34 [code = INFLUENZA VACCINE] Encounters Start End Encounter Admission Attending Care Care Encounter Source Date/Time Date/Time Type Type Clinicians Facility Department ID 2022-08-06 2022-08-06 [facility], 1.2.840.1 [id number] [facility] 13:15:39 23:59:00 Encounter Fabain [id number] 3.430.2.7 Hospit a .3.350846 l .8 2022-08-06 2022-08-06 [facility], 1.2.840.1 [id number] [facility] 13:15:39 23:59:00 Encounter Fabian [id number] 3.430.2.7 Hospit a .3.723766 l .8 2022-08-06 2022-08-06 [facility], 1.2.840.1 [id number] [facility] 13:14:51 13:14:51 Encounter Fabian [id number] 3.430.2.7 Hospit a .3.484980 l .8 2022-08-06 2022-08-06 [facility], 1.2.840.1 [id number] [facility] 13:14:51 13:14:51 Encounter Fabian [id number] 3.430.2.7 Hospit a .3.859643 l .8 2022-08-06 2022-08-06 Travel 1.2.840.1 [id number] [facility] 00:00:00 00:00:[id number] 3.430.2.7 0.2.7.3.698 Ho spita .3.930007 084.8 l .8 2022-08-06 2022-08-06 Travel 1.2.840.1 [id number] [id number] [facility] 00:00:00 00:00:[id number] 3.430.2.7 0.2.7.3.698 Ho spita .3.223702 084.8 l .8 2022-07-23 2022-07-23 Transcribe [facility], 1.2.840.1 [id number] [facility] 00:00:00 00:00:00 Orders Fabian [id number] 3.430.2.7 Hospit a .3.704614 l .8 2022-07-23 2022-07-23 Transcribe Maria, 1.2.840.1 [id number] [facility] 00:00:00 00:00:00 Orders Fabian [id number] 3.430.2.7 Hospit a .3.497739 l .8 Results This patient has no known results.
[2022-12-06] MEDS ORDERED: DIPHENHYDRAMINE 25 MG TAB/CAP PO PRN (19:08)
[2022-12-06] MEDS ORDERED: DOCUSATE NA/SENNA CONC 1 TAB PO PRN (19:16)
[2022-12-06] MEDS ORDERED: ACETAMINOPHEN 500 MG TAB PO PRN (19:18)
[2022-12-06] MEDS ORDERED: APIXABAN 2.5 MG TABLET PO SCH (20:00)
--- NOTE | 2022-12-06 21:05 | HP ---
Date of Admission: 12/06/2022 Time Of Service: 6:55 p.m. Chief Complaint: "I fell and broke my left hip and had surgery." History Of Present Illness: Mr. Hale is a 77-year-old, right-handed, patient with hype rtension, hypothyroidism, and cirrhosis of the liver without ascites, who had a fall at home where he impacted the left hip and had severe pain. Came to [facility] and was evaluated. The fall occurred on 12/01/2022. At [facility], he was evaluated by Dr. Bryson Mayo in the orthope dic service and his primary care physician, Dr. Sifuentes. Also, managed his medical issues. As a resul t of acute fracture, he was deemed to be an appropriate candidate for hip surgery. Dr. Mayo performe d the left hip hemiarthroplasty on the left side as noted on 12/02/2022. Patient's hospital course w as complicated by anemia, his significant inability to bear weight without pain, and because of the a nemia, there is a possibility he may require transfusion and therefore he is not at this point ready to be discharged home as inpatient rehabilitation will be required so he can safely begin to recover while his medical conditions are managed acutely. Past Medical History: As noted above. Longstanding peripheral neuropathy with hypothyroidism and dy slipidemia. Allergies: NO KNOWN DRUG ALLERGIES. Social History: Patient smoked in the past. No current alcohol or drug use. Lives at home with [facility]. Does drink caffeinated beverages. Home Medications: Aspirin 81 mg daily. He takes capsule daily. Also, diphenhydramine 25 mg daily as needed and Metanx capsule daily, Toprol-XL 12.5 mg at bedtime, Folgard tablet 1 daily, T ylenol with Codeine 1 at bedtime, gabapentin 100 mg twice daily, and pravastatin 40 mg daily. Family History: Noncontributory. Review of Systems: Mr. Hale reports some pain up to about 8 to 10/10 when he is ambulating, 4 to 5/10 when lying in bed. He also is constipated since being in hospital. No bowel movements for about 3 days. He jamal es any fevers or chills. He does admit some myalgias in the left anterior thigh. No rash. No heada jennyfer. No psychiatric issues. No active dermatological issues or genitourinary issues. Laboratory Studies: White blood cell count 5.7, hemoglobin 9.0, platelets 132. INR 0.98. Chemistry : Sodium 132, potassium 4.6, chloride 103, carbon dioxide 25, BUN 17, creatinine 1.26, calcium 8.2, glucose 91. X-ray/imaging: Postoperative x-ray on 12/02/2022 shows left total hip arthroplasty. Hardware is in expected position and alignment. Lateral skin lawanda noted. No unexpected postoperative findings. Physical Examination: Vital Signs: Blood pressure 150/86, pulse 69, respiratory rate 18, temperature 97.8, oxygen saturati on 100% on room air. General: Mr. Hale is resting comfortably in bed. He is in no acute distress. HEENT: He is normocephalic, atraumatic. Sclerae anicteric. Oropharynx is pink and moist. Neck: Supple. Chest: Clear. Heart: Regular. Extremities: Show trace edema in the left lower extremity. No clubbing or cyanosis, otherwise in th e extremities. Neurological: He has no focal cranial nerves, motor, coordination, and sensory deficits. He has giv eaway pain in the left lower extremity. In terms of his gait, he did ambulate with physical therapy on the acute care floor covered about 132 feet with contact guard assistance, did require some cues a s well. Current Functional Status: Currently, he requires moderate assistance for showering. Toilet hygiene is contact guard assistance. Upper body dressing supervision; maximum assistance for lower body tabitha ssing; maximum assistance for donning and doffing footwear; for rolling to the left and right, maximu m assistance. Sitting to lying, maximum assistance and lying to sitting also maximum assistance. To ileting transfers. Maximum assistance and ambulation was at contact guard assistance of 132 feet. Assessment: Mr. Hale is admitted to the inpatient rehabilitation unit with a rehabilitation [facility] airment category of 07 orthopedic left lower extremity fracture. His impairment group code is 08.11 status post unilateral hip fracture and status post hemiarthroplasty. His etiologic diagnosis is a b uckle fracture at the base of the femoral head. Active comorbidities: Hypothyroidism, hypertension, dyslipidemia, peripheral neuropathy. He has had a risk for bradycardia, deep vein thrombosis, edema . He has muscle cramp risk and risk of infection and falls. Plan: 1.He will have physical and occupational therapy 3 hours a day, 5 of 7 days. 2.For hypertension, we will continue his clonidine 0.1 mg every 2 hours as needed for systolic great er than 170. We will continue Toprol-XL 12.5 mg at bedtime for pain. He has received morphine that will be discontinued. He will be on tramadol 50 mg every 5 hours as needed, Zofran 4 mg every 6 hour s as needed, Lovenox 40 mg subcutaneously daily, Colace 200 mg daily, Lipitor 10 mg at bedtime, and g abapentin will be increased to 100 mg in morning and 200 mg at night. Impact Of Comorbids: The patient does have peripheral neuropathy and part of the reason why he fell is that he said his foot would not move as he was ambulating. He is at risk of that continuing and r ecurring because of numbness related to peripheral neuropathy. He will ambulate with a rolling walke r at all times, gait belt, and therapist at the bedside. In addition, he is not impulsive, but if ne ed be bed alarm and wheelchair alarm will be used. Patient is instructed on the importance of using visual cues and upper extremity tactile input as he ambulates to decrease his risk of falling. Rehab Specific Plan: 1.Again, Mr. Hale will have 3 hours a day, 5 of 7 days of physical and occupational therapy to improve his upper and lower body dressing, transferring, toileting, showering, and ability to ambulat e where he was before over 250 feet with modified independence up and down 10 steps with modified ind ependence. In addition, doing all activities of daily living with modified independence. In additio n, his pain will be managed to a level of 3 or less. 2.Comorbid conditions will be adequately addressed. 3.Risk of deep vein thrombosis addressed. 4.Risk of infection addressed and his constipation also will be addressed. Mr. Hale has a good understanding of the admission and discharge process to the inpatient rehabi litation unit and the interdisciplinary approach that will be applied. He has a potential to make gr eat improvement and again will require at least physical and occupational therapy, if need be speech therapy will be added. Dr. Sifuentes, his primary care physician, will follow him while in the hospital. His nutrition status will be evaluated and protein supplementation added as needed. He is anemic. The potential for anemia is there and that will be followed with iron supplementation and protein as well. If need be services from the orthopedic service and cardiology service will be sought. Given his complex medical condition and risk of further complications, rehabilitation cannot be safely or affectively performed at the lower level facility such as sn[facility]. Barriers To Discharge: His peripheral neuropathy is somewhat of a barrier, but can be easily overcom e. He does have pain that again will be overcome with adjusting his medication and he has constipati on that will be adjusted by medications. Estimated Length Of Stay: About 13-14 days. Disposition: Home with family. Prognosis: Good. Rehabilitation Goals: 1.Become independent with upper and lower body dressing and donning and doffing shoes. 2.Independent with transferring from bed to toilet to wheelchair to shower. 3.Independent performing a shower and toileting. 4.Independent with ambulating 250 feet with modified independence. 5.Social Circle going up and down 10 steps. I acknowledge I have personally performed a full physical examination on Mr. Hale within 2 hours of his arrival to the inpatient rehabilitation unit and determined that he is able to tolerate the a yue course of treatment at an intensive level for a reasonable period of time. A detailed individua lized plan of care for him will be completed by hospital day 4 based on the preadmission screen, admission history and physical, and the therapeutic evaluations. ADAL Voice ID: [id number]
[2022-12-06] MEDS: ATORVASTATIN 10 MG TAB PO SCH (21:06)
[2022-12-06] MEDS: GABAPENTIN 100 MG CAP PO SCH (21:07)
[2022-12-06] MEDS: METOPROLOL XL 25 MG TAB PO SCH (21:07)
[2022-12-06] MEDS: MAGNESIUM OXIDE 400 MG TAB PO SCH (21:07)
[2022-12-06] MEDS: MELATONIN 3 MG TABLET PO PRN (21:08)
[2022-12-06] MEDS: TRAMADOL HCL 50 MG TAB PO PRN (21:13)
[2022-12-06 23:04] LABS: Specific Gravity 1.019 (1.005-1.030); Urine Bacteria None Seen /HPF (<20); Urine Bilirubin NEGATIVE (Negative); Urine Blood Negative (Negative); Urine Clarity Clear (Clear); Urine Color Light-Yellow (Yellow); Urine Glucose NEGATIVE (Negative); Urine Mucus Slight /HPF (None Seen); Urine Protein NEGATIVE (Negative); Urine RBC <5 /HPF (None Seen); Urine Urobilinogen Normal (Normal); Urine pH 5.5 (5.0-7.0)
[2022-12-07] MEDS: TRAMADOL HCL 50 MG TAB PO PRN ×3 (03:40→20:53)
[2022-12-07 05:40] VITALS: BMI 21.7
[2022-12-07 06:28] LABS: Hematocrit 23.3 % (39.6-49.0); Lymphocytes % 20.2 % (15.3-44.8); MCV 96.5 fL (80-100); MPV 8.5 fL (7.6-11.3); RBC Red Blood Cell Count 2.42 M/uL (4.33-5.43)
[2022-12-07 06:49] LABS: Albumin 2.8 g/dL (3.4-5.0); Potassium 4.5 mEq/L (3.5-5.1); Prealbumin 11.1 mg/dL (20-40)
[2022-12-07] MEDS: GABAPENTIN 100 MG CAP PO SCH ×2 (07:59→20:52)
[2022-12-07] MEDS: ENOXAPARIN 40 MG/0.4 ML SQ SCH (07:59)
[2022-12-07] MEDS: ASPIRIN EC 81 MG TAB PO SCH (07:59)
[2022-12-07] MEDS: LIDOCAINE 4% PATCH TOP SCH (08:00)
[2022-12-07] MEDS ORDERED: [UNRECOGNIZED DRUG - OTHER] PO SCH (08:00)
[2022-12-07] MEDS: METANX PO SCH (08:00)
[2022-12-07] MEDS: MAGNESIUM OXIDE 400 MG TAB PO SCH ×2 (08:01→20:52)
[2022-12-07] MEDS ORDERED: PNEUMOCOCCAL VACCINE 0.5 ML IMVAC ONE (08:30)
[2022-12-07] MEDS: FOLBIC 1 TAB PO SCH (09:41)
[2022-12-07] MEDS ORDERED: [UNRECOGNIZED DRUG - OTHER] PO SCH (20:00)
[2022-12-07] MEDS: [UNRECOGNIZED DRUG - OTHER] PO SCH (20:51)
[2022-12-07] MEDS: DOCUSATE NA/SENNA CONC 1 TAB PO SCH (20:51)
[2022-12-07] MEDS: TAMSULOSIN 0.4 MG SR CAP PO SCH (20:52)
[2022-12-07] MEDS: ATORVASTATIN 10 MG TAB PO SCH (20:53)
[2022-12-07] MEDS: METOPROLOL XL 25 MG TAB PO SCH (20:53)
[2022-12-07] MEDS: MELATONIN 3 MG TABLET PO PRN (20:53)
[2022-12-08] MEDS ORDERED: BISACODYL 10 MG RECTAL SUPP PR PRN (06:36)
[2022-12-08] MEDS: ENOXAPARIN 40 MG/0.4 ML SQ SCH (07:30)
[2022-12-08] MEDS: FOLBIC 1 TAB PO SCH (07:31)
[2022-12-08] MEDS: LIDOCAINE 4% PATCH TOP SCH (07:31)
[2022-12-08] MEDS: GABAPENTIN 100 MG CAP PO SCH ×2 (07:32→20:28)
[2022-12-08] MEDS: ASPIRIN EC 81 MG TAB PO SCH (07:32)
[2022-12-08] MEDS: FERROUS SULFATE 325 MG TAB PO SCH (07:32)
[2022-12-08] MEDS: MAGNESIUM OXIDE 400 MG TAB PO SCH ×2 (07:32→20:29)
[2022-12-08] MEDS: [UNRECOGNIZED DRUG - OTHER] PO SCH ×2 (07:32→20:28)
[2022-12-08] MEDS: FE SULF/FA/VIT B COMP & C TAB PO SCH (07:32)
[2022-12-08] MEDS: METANX PO SCH (08:00)
[2022-12-08] MEDS: TRAMADOL HCL 50 MG TAB PO PRN ×2 (08:03→17:07)
[2022-12-08] MEDS: POLYETHYL GLY 3350 17 GM/DOSE PO PRN (12:58)
[2022-12-08] MEDS: ATORVASTATIN 10 MG TAB PO SCH (20:28)
[2022-12-08] MEDS: TAMSULOSIN 0.4 MG SR CAP PO SCH (20:28)
[2022-12-08] MEDS: MELATONIN 3 MG TABLET PO PRN (20:28)
[2022-12-08] MEDS: METOPROLOL XL 25 MG TAB PO SCH (20:29)
[2022-12-08] MEDS: DOCUSATE NA/SENNA CONC 1 TAB PO SCH (20:30)
--- NOTE | 2022-12-08 21:52 | P.PN ---
Subjective Date of Service: 12/08/22 Chief Complaint: HIP FRACTURE Subjective: Improving HE IS NOW IN REHAB AFTER STRUGGLE TO BRING HIM HERE. FIRST INSURANCE DOC REFUSED REHAB BUT SHE HEARD ABOUT MY UNHAPPINESS ABOUT THE WHOLE PROCESS THAT TAKES 10 DAYS AND SHE APPROVED 5 DAYS FOR HIM. Physical Examination - Vital Signs Temperature: 98.1 F Blood Pressure: 106/57 Pulse: 71 Respirations: 18 Pulse Ox (%): 98 - Physical Exam General: Alert, In no apparent distress HEENT: Atraumatic, PERRLA, EOMI Neck: Supple, JVD not distended Respiratory: Clear to auscultation bilaterally, Normal air movement Cardiovascular: Regular rate/rhythm, Normal S1 S2 Gastrointestinal: Normal bowel sounds, No tenderness Musculoskeletal: No tenderness Integumentary: No rashes Neurological: Normal speech, Normal tone, Normal affect Lymphatics: No axilla or inguinal lymphadenopathy - Studies Medications List Reviewed: Yes Assessment And Plan - Current Problems (Diagnosis) (1) Hip fracture Current Visit: No Status: Acute Plan: CONT PT STOP LOVENOX HG DROPPED SCD AND ASPIRN DAILY. Qualifiers: Encounter type: subsequent encounter Fracture type: closed
[2022-12-09 04:26] LABS: Absolute Lymphocytes (CBC) 1.2 K/uL (0.7-4.9); Hematocrit 21.9 % (39.6-49.0); Lymphocytes % 24.2 % (15.3-44.8); MCV 97.4 fL (80-100); MPV 8.4 fL (7.6-11.3); RBC Red Blood Cell Count 2.25 M/uL (4.33-5.43)
[2022-12-09 04:36] LABS: Potassium 4.6 mEq/L (3.5-5.1)
[2022-12-09] MEDS: FOLBIC 1 TAB PO SCH (07:25)
[2022-12-09] MEDS: FERROUS SULFATE 325 MG TAB PO SCH (07:25)
[2022-12-09] MEDS: MAGNESIUM OXIDE 400 MG TAB PO SCH ×2 (07:25→20:32)
[2022-12-09] MEDS: [UNRECOGNIZED DRUG - OTHER] PO SCH ×2 (07:25→20:33)
[2022-12-09] MEDS: GABAPENTIN 100 MG CAP PO SCH ×2 (07:25→20:30)
[2022-12-09] MEDS: ASPIRIN EC 81 MG TAB PO SCH (07:25)
[2022-12-09] MEDS: FE SULF/FA/VIT B COMP & C TAB PO SCH (07:25)
[2022-12-09] MEDS: TRAMADOL HCL 50 MG TAB PO PRN (07:26)
[2022-12-09] MEDS: METANX PO SCH (07:28)
[2022-12-09] MEDS ORDERED: NA CHLORIDE 0.9% 250 ML IV SCH (10:00)
[2022-12-09] MEDS: LIDOCAINE 4% PATCH TOP SCH (11:15)
[2022-12-09] MEDS: ATORVASTATIN 10 MG TAB PO SCH (20:29)
[2022-12-09] MEDS: METOPROLOL XL 25 MG TAB PO SCH (20:30)
[2022-12-09] MEDS: TAMSULOSIN 0.4 MG SR CAP PO SCH (20:31)
[2022-12-09] MEDS: DOCUSATE NA/SENNA CONC 1 TAB PO SCH (20:32)
--- NOTE | 2022-12-09 21:43 | P.PN ---
Subjective Date of Service: 12/09/22 Chief Complaint: HIP FRACTURE Subjective: Improving HE IS NOW IN REHAB AFTER STRUGGLE TO BRING HIM HERE. FIRST INSURANCE DOC REFUSED REHAB BUT SHE HEARD ABOUT MY UNHAPPINESS ABOUT THE WHOLE PROCESS THAT TAKES 10 DAYS AND SHE APPROVED 5 DAYS FOR HIM. HE IS STRONGER. HG IS LOWER NO PAIN. Physical Examination - Vital Signs Temperature: 98.2 F Blood Pressure: 124/58 Pulse: 69 Respirations: 17 Pulse Ox (%): 97 - Physical Exam General: Oriented x3, Mild distress HEENT: Atraumatic, PERRLA, EOMI Neck: Supple, JVD not distended Respiratory: Clear to auscultation bilaterally, Normal air movement Cardiovascular: Regular rate/rhythm, Normal S1 S2 Gastrointestinal: Normal bowel sounds, No tenderness Musculoskeletal: No tenderness Integumentary: No rashes Neurological: Normal speech, Normal tone, Normal affect Lymphatics: No axilla or inguinal lymphadenopathy - Studies Laboratory Data (last 24 hrs) 12/09/22 03:47: Sodium 129 L, Potassium 4.6, BUN 19 H, Creatinine 1.35 H, Glucose 93 12/09/22 03:47: WBC 5.10, Hgb 7.6 L, Hct 21.9 L, Plt Count 187 Microbiology Data (last 24 hrs): 12/06/22 21:00 Clean Catch Urine [place] Count - Final No growth. 12/06/22 21:00 Clean Catch Urine - Final No growth. Medications List Reviewed: Yes Assessment And Plan - Current Problems (Diagnosis) (1) Hip fracture Current Visit: No Status: Acute Plan: CONT PT STOP LOVENOX HG DROPPED SCD AND ASPIRN DAILY. Qualifiers: Encounter type: subsequent encounter Fracture type: closed (2) Anemia Current Visit: Yes Status: Acute Plan: SEVERE TRANSFUSE TWO UNITS HOLD LOVENOX.
[2022-12-10 03:39] LABS: Absolute Lymphocytes (CBC) 1.1 K/uL (0.7-4.9); Hematocrit 29.8 % (39.6-49.0); Lymphocytes % 21.9 % (15.3-44.8); MCV 95.4 fL (80-100); MPV 8.3 fL (7.6-11.3); RBC Red Blood Cell Count 3.12 M/uL (4.33-5.43)
[2022-12-10 04:13] LABS: Potassium 4.8 mEq/L (3.5-5.1)
[2022-12-10] MEDS: POLYETHYL GLY 3350 17 GM/DOSE PO PRN (05:37)
[2022-12-10] MEDS: LIDOCAINE 4% PATCH TOP SCH (07:33)
[2022-12-10] MEDS: MAGNESIUM OXIDE 400 MG TAB PO SCH ×2 (07:34→19:38)
[2022-12-10] MEDS: FOLBIC 1 TAB PO SCH (07:34)
[2022-12-10] MEDS: GABAPENTIN 100 MG CAP PO SCH (07:34)
[2022-12-10] MEDS: ASPIRIN EC 81 MG TAB PO SCH (07:34)
[2022-12-10] MEDS: TRAMADOL HCL 50 MG TAB PO PRN ×2 (07:35→12:25)
[2022-12-10] MEDS: FERROUS SULFATE 325 MG TAB PO SCH (07:35)
[2022-12-10] MEDS: FE SULF/FA/VIT B COMP & C TAB PO SCH (07:35)
[2022-12-10] MEDS: [UNRECOGNIZED DRUG - OTHER] PO SCH ×2 (07:36→19:36)
[2022-12-10] MEDS: METANX PO SCH (07:36)
--- NOTE | 2022-12-10 12:57 | P.PN ---
Subjective Date of Service: 12/10/22 Chief Complaint: HIP FRACTURE Subjective: Improving (DOING PT, STABLE.) HE IS NOW IN REHAB AFTER STRUGGLE TO BRING HIM HERE. FIRST INSURANCE DOC REFUSED REHAB BUT SHE HEARD ABOUT MY UNHAPPINESS ABOUT THE WHOLE PROCESS THAT TAKES 10 DAYS AND SHE APPROVED 5 DAYS FOR HIM. HE IS STRONGER. HG IS LOWER NO PAIN. Physical Examination - Vital Signs Temperature: 97.6 F Blood Pressure: 125/62 Pulse: 63 Respirations: 16 Pulse Ox (%): 95 - Physical Exam General: Oriented x3, Mild distress HEENT: Atraumatic, PERRLA, EOMI Neck: Supple, JVD not distended Respiratory: Clear to auscultation bilaterally, Normal air movement Cardiovascular: Regular rate/rhythm, Normal S1 S2 Gastrointestinal: Normal bowel sounds, No tenderness Musculoskeletal: No tenderness Integumentary: No rashes Neurological: Normal speech, Normal tone, Normal affect Lymphatics: No axilla or inguinal lymphadenopathy - Studies Laboratory Data (last 24 hrs) 12/10/22 03:01: Sodium 130 L, Potassium 4.8, BUN 19 H, Creatinine 1.29, Glucose 98 12/10/22 03:01: WBC 5.10, Hgb 10.5 L D, Hct 29.8 L, Plt Count 195 12/10/22 02:45: Hgb Cancelled, Hct Cancelled Microbiology Data (last 24 hrs): 12/06/22 21:00 Clean Catch Urine [place] Count - Final No growth. 12/06/22 21:00 Clean Catch Urine - Final No growth. Medications List Reviewed: Yes Assessment And Plan - Current Problems (Diagnosis) (1) Hip fracture Current Visit: No Status: Acute Plan: CONT PT STOP LOVENOX HG DROPPED SCD AND ASPIRN DAILY. STABLE. NO CHANGES. Qualifiers: Encounter type: subsequent encounter Fracture type: closed (2) Anemia Current Visit: Yes Status: Acute Plan: SEVERE TRANSFUSE TWO UNITS HOLD LOVENOX.
[2022-12-10] MEDS: TAMSULOSIN 0.4 MG SR CAP PO SCH (19:36)
[2022-12-10] MEDS: METOPROLOL XL 25 MG TAB PO SCH (19:37)
[2022-12-10] MEDS: ATORVASTATIN 10 MG TAB PO SCH (19:37)
[2022-12-10] MEDS: GABAPENTIN 300 MG CAP PO SCH (19:38)
[2022-12-10] MEDS: DOCUSATE NA/SENNA CONC 1 TAB PO SCH (19:38)
[2022-12-10] MEDS: MELATONIN 3 MG TABLET PO PRN (19:45)
--- NOTE | 2022-12-10 21:19 | PN ---
Date of Progress Note: 12/10/2022 Time Of Service: 1 p.m. Subjective: Mr. Hale notes some pain in the left hip surgical site where his lawanda are still in place. He said at worse, although brief, the pain may go up to 9/10. Once the patches are placed , the pain does improve significantly. He denies additional complaints. Review of Systems: No fevers, chills, nausea, or vomiting. No myalgias or arthralgias aside from mentioned. No rash. No headache. No weight change. No psychiatric issues. No active gastrointestinal or genitourinary issues. Physical Examination: Vital Signs: Blood pressure 141/74, pulse 97, respiratory rate 16, temperature 98, and oxygen satura tion 95%. General: Mr. Hale is in the gym and sitting on the low table. Legs are swinging and he denies significant pain at the moment, but said that in the past, the pain was as mentioned above. He is in no acute distress. HEENT: He is normocephalic, atraumatic. Sclerae anicteric. Oropharynx pink and moist. Neck: Supple. Chest: Clear. Heart: Regular. Extremities: No significant edema or cyanosis despite his left hip surgery. Neurologic: He has no focal neurological deficits, some give way because of the left hip surgery. Laboratory Studies: White blood cell count 5.1, hemoglobin 10.5, and platelets 195. Sodium 130, pot assium 4.8, chloride 97, carbon dioxide 28, BUN 19, creatinine 1.29, and calcium 8.5. Imaging Studies: No imaging studies. Medications: Tylenol 500 mg every 6 hours as needed, aspirin 81 mg daily, Lipitor 10 mg at bedtime, Dulcolax 10 mg as needed per rectum for constipation, Benadryl 25 mg daily for itching, ferrous sulfa te 325 mg daily, folic acid 1 tablet daily, gabapentin now 300 mg twice daily started today, lidocain e patch applied to the left hip area as needed magnesium oxide 400 mg twice daily, Toprol-XL 12.5 mg at bedtime, melatonin 3 mg at bedtime, multivitamin 1 tablet daily, Senokot-S 2 at bedtime, tramadol 500 mg every 4 hours, and Flomax 0.4 mg at bedtime. Current Functional Status: Today Mr. Hale was able to do stand and pivot transfers with standby assistance using a rolling walker. He ascended and descended 25 steps with standby assistance using bilateral handrails. He ambulated outside hospital on the sidewalk covering more than 1000 feet. Lesa osorio was able to ascend and descend a ramp, negotiate uneven surfaces with standby assistance. He did h ave proper gait technique. With his occupational therapy, he did have the pain as described, but it decreases with pain patch and he did bilateral lower extremity exercises while holding onto the ball, did 3 sets of 5 exercises with a rest break. Progress Towards Rehabilitation Goals: Mr. Hale is making excellent progress towards his rehabi litation goals of becoming independent with upper and lower body dressing, toileting, showering, garcia sferring from bed to toilet and to shower and mobilizing with wheelchair and ambulating now over 500 feet with modified independence and going up and down 25 steps with modified independence. Assessment: Mr. Hale is a 77-year-old patient in the rehabilitation unit with left hip fracture status post surgical repair. He has hypothyroidism, hypertension, dyslipidemia, peripheral neuropat hy, risk of bradycardia, and deep vein thrombosis. He does have improved muscle cramps and left hip pain where he had surgery. Plan: 1.Continue physical and occupational therapy for 3 hours a day, 5 of 7 days. 2.He has multiple medications for his comorbid conditions and they are managed by Dr. Sifuentes, his [facility] physician. He is receiving the medicines outlined above for the comorbidities conditions a s noted. Impact Of Comorbids On His Rehabilitation Process: While he has peripheral neuropathy and he is at r isk of falling because of decreased sensory input from the lower extremities, he is actually doing ve ry well and ambulating stably with the rolling walker. He is somewhat impulsive, but is able to foll ow instructions well from the therapists and is doing well with that. Furthermore, he has left hip p ain. It briefly goes to a very high level, but it is relieved by the pain patch. His gabapentin dos age was adjusted to 300 mg twice daily from 100 mg twice daily and that should help decrease his neur opathic type pain. LB/MODL Voice ID: [id number] Report ID: [id number]
[2022-12-11] MEDS: METANX PO SCH (08:00)
[2022-12-11] MEDS: [UNRECOGNIZED DRUG - OTHER] PO SCH ×2 (08:03→19:56)
[2022-12-11] MEDS: FOLBIC 1 TAB PO SCH (08:03)
[2022-12-11] MEDS: ASPIRIN EC 81 MG TAB PO SCH (08:04)
[2022-12-11] MEDS: TRAMADOL HCL 50 MG TAB PO PRN ×2 (08:04→19:57)
[2022-12-11] MEDS: LIDOCAINE 4% PATCH TOP SCH (08:04)
[2022-12-11] MEDS: GABAPENTIN 300 MG CAP PO SCH ×2 (08:05→19:56)
[2022-12-11] MEDS: FERROUS SULFATE 325 MG TAB PO SCH (08:05)
[2022-12-11] MEDS: FE SULF/FA/VIT B COMP & C TAB PO SCH (08:05)
[2022-12-11] MEDS: MAGNESIUM OXIDE 400 MG TAB PO SCH ×2 (10:20→19:56)
[2022-12-11] MEDS: ATORVASTATIN 10 MG TAB PO SCH (19:56)
[2022-12-11] MEDS: METOPROLOL XL 25 MG TAB PO SCH (19:56)
[2022-12-11] MEDS: TAMSULOSIN 0.4 MG SR CAP PO SCH (19:56)
[2022-12-11] MEDS: DOCUSATE NA/SENNA CONC 1 TAB PO SCH (19:57)
[2022-12-11] MEDS: MELATONIN 3 MG TABLET PO PRN (19:58)
--- NOTE | 2022-12-11 21:08 | PN ---
Date of Progress Note: 12/11/2022 [facility] Progress Note Visit Time Of Service: 1 p.m. Subjective: Mr. Hale is doing very well. He is ambulating throughout the hospital. Denies any significant pain in his left hip surgical site except mild stinging where the lawanda are still in p lace, but the pain patch mitigates that very well and the pain may be 4 to 5/10 or down to 2 or less. Review of Systems: No fevers, chills, nausea, vomiting, myalgias, arthralgias, rash, headache, or weight change. No psy chiatric issues or gastrointestinal or genitourinary issues. Physical Examination: Vital Signs: Blood pressure 139/69, pulse of 59, respiratory rate 16, temperature 97.6, and oxygen s aturation 96%. General: Mr. Hale is ambulating with the rolling walker, physical therapist is behind. He is i n no acute distress. HEENT: He is normocephalic, atraumatic. Sclerae anicteric. Oropharynx pink and moist. Neck: Supple. Chest: Clear. Heart: Regular. Extremities: No edema or cyanosis. He has good hemostasis at the left hip surgical site. Laboratory Studies: No new laboratory studies. X-ray/imaging: No new x-ray or imaging. Medications: His medications have been reviewed and remain unchanged from yesterday. Current Functional Status: Currently Mr. Hale did [id number] transfers independently and sta nd and pivot transfers done independently. He ambulated 600 feet, 400 feet, 250 feet, and 120 feet i ndependently with a rolling walker. He ascended 30 steps independently with bilateral handrails. Ak th occupational therapy, [id number] transfers and within the room and to the gym multiple times wit h a rolling walker, done independently. He tolerated 50 minutes of standing while engaging in bilate ral upper extremity exercises with no rest breaks, doing very well. Toilet hygiene independent. Progress Towards Rehabilitation Goals: Mr. Hale is making excellent progress towards his goals of becoming independent with all activities of daily living including all of his dressing of upper an d lower body, donning and doffing of clothes, transferring to bed, toilet, shower and ambulating with a rolling walker up and down multiple steps and ambulating over 600 feet with independence. Assessment: Mr. Hale is a 77-year-old patient with left hip fracture status post surgical repai r. He is doing excellent with his physical and occupational therapy. He has hypothyroidism, hyperte nsion, dyslipidemia, and peripheral neuropathy, which are very well managed. Plan: 1.Continue physical and occupational therapy for 3 hours a day, 5 of 7 days. 2.His multiple comorbid conditions, which are stable, are managed by Dr. Sifuentes, his primary care janice rendon and he is doing very well from that standpoint. He has no significant pain complaints, he is sleeping well and bowel movements are regular. Impact Of Comorbids On His Rehabilitation Process: Mr. Hale has no significant negative impact on his rehabilitation and he is doing very well. Pain is well managed and he is very happy with the progress made during his rehabilitation and he is recommended to do outpatient as he is thriving with therapy. VIVIAN/DERICK Voice ID: [id number] Report ID: [id number]
--- NOTE | 2022-12-11 21:35 | P.PN ---
Subjective Date of Service: 12/11/22 Chief Complaint: HIP FRACTURE Subjective: Improving HE IS NOW IN REHAB AFTER STRUGGLE TO BRING HIM HERE. FIRST INSURANCE DOC REFUSED REHAB BUT SHE HEARD ABOUT MY UNHAPPINESS ABOUT THE WHOLE PROCESS THAT TAKES 10 DAYS AND SHE APPROVED 5 DAYS FOR HIM. HE IS STRONGER. HG IS LOWER NO PAIN. HE IS DOING LOT BETTER. PT CONTINUED DC ON FRIDAY. Physical Examination - Vital Signs Temperature: 98.2 F Blood Pressure: 132/64 Pulse: 67 Respirations: 18 Pulse Ox (%): 99 - Physical Exam General: Alert, In no apparent distress HEENT: Atraumatic, PERRLA, EOMI Neck: Supple, JVD not distended Respiratory: Clear to auscultation bilaterally, Normal air movement Cardiovascular: Regular rate/rhythm, Normal S1 S2 Gastrointestinal: Normal bowel sounds, No tenderness Musculoskeletal: No tenderness Integumentary: No rashes Neurological: Normal speech, Normal tone, Normal affect Lymphatics: No axilla or inguinal lymphadenopathy - Studies Medications List Reviewed: Yes Assessment And Plan - Current Problems (Diagnosis) (1) Hip fracture Current Visit: No Status: Acute Plan: CONT PT STOP LOVENOX HG DROPPED SCD AND ASPIRN DAILY. STABLE. NO CHANGES. Qualifiers: Encounter type: subsequent encounter Fracture type: closed (2) Anemia Current Visit: Yes Status: Acute Plan: SEVERE TRANSFUSE TWO UNITS HOLD LOVENOX.
[2022-12-12 04:32] LABS: Absolute Lymphocytes (CBC) 1.1 K/uL (0.7-4.9); Hematocrit 29.2 % (39.6-49.0); Lymphocytes % 25.3 % (15.3-44.8); MCV 96.4 fL (80-100); MPV 8.2 fL (7.6-11.3); RBC Red Blood Cell Count 3.03 M/uL (4.33-5.43)
[2022-12-12 04:40] LABS: Albumin 2.9 g/dL (3.4-5.0); Magnesium 2.4 mg/dL (1.6-2.4); Potassium 4.3 mEq/L (3.5-5.1); Prealbumin 10.3 mg/dL (20-40)
[2022-12-12] MEDS: LIDOCAINE 4% PATCH TOP SCH (08:06)
[2022-12-12] MEDS: FE SULF/FA/VIT B COMP & C TAB PO SCH (08:07)
[2022-12-12] MEDS: ASPIRIN EC 81 MG TAB PO SCH (08:08)
[2022-12-12] MEDS: GABAPENTIN 300 MG CAP PO SCH ×2 (08:08→19:41)
[2022-12-12] MEDS: FERROUS SULFATE 325 MG TAB PO SCH (08:09)
[2022-12-12] MEDS: MAGNESIUM OXIDE 400 MG TAB PO SCH ×2 (08:09→19:42)
[2022-12-12] MEDS: TRAMADOL HCL 50 MG TAB PO PRN ×2 (08:09→19:42)
[2022-12-12] MEDS: FOLBIC 1 TAB PO SCH (08:10)
[2022-12-12] MEDS: [UNRECOGNIZED DRUG - OTHER] PO SCH ×2 (08:10→19:41)
[2022-12-12] MEDS: MELATONIN 3 MG TABLET PO PRN (19:41)
[2022-12-12] MEDS: METOPROLOL XL 25 MG TAB PO SCH (19:41)
[2022-12-12] MEDS: ATORVASTATIN 10 MG TAB PO SCH (19:42)
[2022-12-12] MEDS: TAMSULOSIN 0.4 MG SR CAP PO SCH (19:42)
[2022-12-12] MEDS: DOCUSATE NA/SENNA CONC 1 TAB PO SCH ×2 (19:43→19:47)
--- NOTE | 2022-12-12 19:52 | P.PN ---
Subjective Date of Service: 12/12/22 Chief Complaint: HIP FRACTURE Subjective: Improving HE IS NOW IN REHAB AFTER STRUGGLE TO BRING HIM HERE. FIRST INSURANCE DOC REFUSED REHAB BUT SHE HEARD ABOUT MY UNHAPPINESS ABOUT THE WHOLE PROCESS THAT TAKES 10 DAYS AND SHE APPROVED 5 DAYS FOR HIM. HE IS STRONGER. HG IS LOWER NO PAIN. HE IS DOING LOT BETTER. PT CONTINUED DC ON FRIDAY. DOINGGOOD WITH PT WILL GO HOME IN AM NO COMPLAINTS. Physical Examination - Vital Signs Temperature: 97.7 F Blood Pressure: 118/65 Pulse: 60 Respirations: 18 Pulse Ox (%): 96 - Studies Laboratory Data (last 24 hrs) 12/12/22 03:47: Sodium 129 L, Potassium 4.3, BUN 16, Creatinine 1.25, Glucose 87, Magnesium 2.4 12/12/22 03:47: WBC 4.50, Hgb 9.9 L, Hct 29.2 L, Plt Count 209 Medications List Reviewed: Yes Assessment And Plan - Current Problems (Diagnosis) (1) Hip fracture Current Visit: No Status: Acute Plan: CONT PT STOP LOVENOX HG DROPPED SCD AND ASPIRN DAILY. STABLE. NO CHANGES. Qualifiers: Encounter type: subsequent encounter Fracture type: closed (2) Anemia Current Visit: Yes Status: Acute Plan: SEVERE TRANSFUSE TWO UNITS HOLD LOVENOX.
--- NOTE | 2022-12-12 19:59 | PN ---
Date of Progress Note: 12/12/2022 Time Of Service: 1 p.m. Subjective: Mr. Hale is doing very well. He denies any significant pain in the left hip surgic al site. He says there is just some mild soreness when he ambulates and he is ambulating throughout the hospital and on multiple types of surfaces. Review of Systems: No fevers, chills, nausea, vomiting, myalgias, arthralgias, rash, headache, weight change. No other complaints. Physical Examination: Vital Signs: Blood pressure 114/62, pulse 59, respiratory rate 18, temperature 97.7. Oxygen saturat ion 96%. General: Mr. Hale is in the middle of therapy, ambulating. HEENT: He is normocephalic, atraumatic. Sclerae anicteric. Oropharynx pink and moist. Neck: Supple. Chest: Clear. Heart: Regular. Extremities: Show no clubbing, cyanosis, or edema. He does not have any issues with his left hip salgado rgical site. There was good hemostasis. No edema in the lower extremity on the left. Laboratory Studies: Complete blood count with differential shows white blood cell count 4.5, hemoglo bin 9.9, platelets 209. Sodium 129, potassium 4.3, chloride 94, carbon dioxide 30, BUN 16, creatinin e 1.25. Prealbumin 10.3. X-ray/imaging: None. Medications: Have been reviewed and remained unchanged. Current Functional Status: Mr. Hale was able to go up and down multiple times with services on steep ramps and ambulated throughout the hospital and on sidewalks over multiple 1000 feet independen tly using a rolling walker. With his occupational therapy, upper and lower body dressing, donning an d doffing footwear, all done independently. ADLs and transfers done independently. Progress Towards Rehabilitation Goals: Mr. Hale made excellent progress and has met his rehabil itation goals and is ready for discharge home. He would benefit from outpatient physical therapy to continue to improve in strength and it is recommended that he continue with such therapy. Assessment And Plan: Mr. Hale is a 77-year-old patient with left hip fracture, status post surg ical repair who is doing an excellent job with his physical and occupational therapy. He is ready to be discharged from that standpoint. He has comorbidities of hypothyroidism, hypertension, dyslipide gila, peripheral neuropathy, and those are well managed. Plan: Continue with all therapy as appropriate for the rest of the day and again he will be ready fo r discharge in the morning. He will follow up with his primary care physician and will continue jean claude gement of all his medications. Impact Of Comorbids On His Rehabilitation Process: At this point, there are no comorbidities that ne gatively impact his rehabilitation. He has done very well and is ready to be discharged home. VIVIAN/DERICK Voice ID: [id number] Report ID: [id number]
[2022-12-13 07:22] VITALS: BP 112/60; TEMP 97
[2022-12-13] MEDS: LIDOCAINE 4% PATCH TOP SCH (08:03)
[2022-12-13] MEDS: FE SULF/FA/VIT B COMP & C TAB PO SCH (08:03)
[2022-12-13] MEDS: FERROUS SULFATE 325 MG TAB PO SCH (08:03)
[2022-12-13] MEDS: ASPIRIN EC 81 MG TAB PO SCH (08:03)
[2022-12-13] MEDS: GABAPENTIN 300 MG CAP PO SCH (08:03)
[2022-12-13] MEDS: MAGNESIUM OXIDE 400 MG TAB PO SCH (08:04)
[2022-12-13] MEDS: TRAMADOL HCL 50 MG TAB PO PRN (08:04)
[2022-12-13] MEDS: FOLBIC 1 TAB PO SCH (08:04)
[2022-12-13] MEDS: [UNRECOGNIZED DRUG - OTHER] PO SCH (08:04)
--- NOTE | 2022-12-13 14:06 | P.RH.PN ---
Estimated Length of Stay: 10 Expected Discharge Date: 12/08/22 Discharge Disposition Plan: Home Family Support: Yes [facility] Goal: Mobility, Transfers, Self Care Vital Signs: Last Vital Signs Temp 97.0 F 12/13/22 07:21 Pulse 60 12/13/22 07:21 Resp 16 12/13/22 08:04 BP 112/60 12/13/22 07:21 Pulse Ox 98 12/13/22 08:04 Laboratory: Laboratory Last Values WBC 4.50 thou/uL (4.3-10.9) 12/12/22 03:47 RBC 3.03 M/uL (4.33-5.43) L 12/12/22 03:47 Hgb 9.9 g/dL (13.6-17.9) L 12/12/22 03:47 Hct 29.2 % (39.6-49.0) L 12/12/22 03:47 MCV 96.4 fL (80-100) 12/12/22 03:47 MCH 32.8 pg (27.0-35.0) 12/12/22 03:47 MCHC 34.0 g/dL (32.0-36.0) 12/12/22 03:47 RDW 14.0 % (12.1-15.2) 12/12/22 03:47 Plt Count 209 thou/uL (152-406) 12/12/22 03:47 MPV 8.2 fL (7.6-11.3) 12/12/22 03:47 Neutrophils % 49.2 % (41.7-73.7) 12/12/22 03:47 Lymphocytes % 25.3 % (15.3-44.8) 12/12/22 03:47 Monocytes % 15.0 % (3.3-12.3) H 12/12/22 03:47 Eosinophils % 9.8 % (0-4.4) H 12/12/22 03:47 Basophils % 0.7 % (0-1.3) 12/12/22 03:47 Absolute Neutrophils 2.2 K/uL (1.8-8.0) 12/12/22 03:47 Absolute Lymphocytes 1.1 K/uL (0.7-4.9) 12/12/22 03:47 Absolute Monocytes 0.7 K/uL (0.1-1.3) 12/12/22 03:47 Absolute Eosinophils 0.4 K/uL (0-0.5) 12/12/22 03:47 Absolute Basophils 0.0 K/uL (0-0.5) 12/12/22 03:47 Sodium 129 mEq/L (136-145) L 12/12/22 03:47 Potassium 4.3 mEq/L (3.5-5.1) 12/12/22 03:47 Chloride 94 mEq/L (98-107) L 12/12/22 03:47 Carbon Dioxide 30 mEq/L (21-32) 12/12/22 03:47 Anion Gap 9.3 mEq/L (5.0-15.0) 12/12/22 03:47 BUN 16 mg/dL (7-18) 12/12/22 03:47 Creatinine 1.25 mg/dL (0.70-1.30) 12/12/22 03:47 Est GFR (CKD-EPI) 59 ml/min (=/>90) L 12/12/22 03:47 Glucose 87 mg/dL (74-106) 12/12/22 03:47 Calcium 8.5 mg/dL (8.5-10.1) 12/12/22 03:47 Magnesium 2.4 mg/dL (1.6-2.4) 12/12/22 03:47 Albumin 2.9 g/dL (3.4-5.0) L 12/12/22 03:47 Prealbumin 10.3 mg/dL (20-40) L 12/12/22 03:47 Urine Color Light-yellow (Yellow) 12/06/22 21:00 Urine Clarity Clear (Clear) 12/06/22 21:00 Urine pH 5.5 (5.0-7.0) 12/06/22 21:00 Ur Specific [place] 1.019 (1.005-1.030) 12/06/22 21:00 Glucose (UA)(Auto) Negative (Negative) 12/06/22 21:00 Urine Ketones Negative (Negative) 12/06/22 21:00 Urine Blood Negative (Negative) 12/06/22 21:00 Urine Nitrite Negative (Negative) 12/06/22 21:00 Urine Bilirubin Negative (Negative) 12/06/22 21:00 Urine Urobilinogen Normal (Normal) 12/06/22 21:00 Ur Leukocyte Esterase Negative Vinod/uL (Negative) 12/06/22 21:00 Urine RBC <5 /HPF (None Seen) 12/06/22 21:00 Urine WBC <5 /HPF (<5) 12/06/22 21:00 Ur Squamous Epith Cells None seen /HPF (None Seen) 12/06/22 21:00 Urine Bacteria None seen /HPF (<20) 12/06/22 21:00 Hyaline Casts 0-5 /LPF (None Seen) 12/06/22 21:00 Urine Mucus Slight /HPF (None Seen) 12/06/22 21:00 Urine Culture Reflexed Not needed 12/06/22 21:00 Urine Total Protein Negative (Negative) 12/06/22 21:00 ABO/Rh B NEGATIVE 12/09/22 09:05 Solid Phase Ab Screen Negative 12/09/22 09:05 Crossmatch See Detail 12/09/22 09:05 Weight: 151 lb 12.8 oz Wound Present: No Closed Surgical Incision Present: Yes Negative Pressure Wound Therapy Present: No Physician Update: Labs reviewed and are stable. He is doing well with all ADLs. He will follow up with Dr. Mayo and have stables removed by home health nurse. Independent with ADLs and all transfers. Walking 600' and up and down 35 steps. Ready for discharged today. Summary: Patient's care plan and long-term goals have been reviewed and revised as necessary. Please see the Rehabilitation Signature page for all necessary sig natures.
== END 2022-12-13 14:40 | disposition home health service (06) | DRG 561 ==
LOC: 5TH 17:58
PROVIDERS: ADMIT Psychiatry & Neurology Neurology with Special Qualifications in Child Neurology; ATTEND Psychiatry & Neurology Neurology with Special Qualifications in Child Neurology
PROC: 30233N1 Transfusion of Nonautologous Red Blood Cells into Peripheral Vein, Percutaneous Approach (ICD-10-PCS; principal; 2022-12-09)
DX: S72.4 Fracture of lower end of femur (principal); D64.9 Anemia, unspecified; G62.9 Polyneuropathy, unspecified; E03.9 Hypothyroidism, unspecified; E78.5 Hyperlipidemia, unspecified; I10 Essential (primary) hypertension
CPT/HCPCS: 36415; 80048; 81001; 82040; 83735; 84134; 85025; 86850; 86900; 86901; 86920; 87086; 87088; 97110; 97112; 97116; 97161; 97165; 97530; J1650; J2001; J7050; P9016